=== PATIENT | female | born 1955 | race Caucasian/White ===

== ENCOUNTER 2019-08-10 09:38 | Outpatient (CLI) | payer MEDICARE, OTHER, SELFPAY ==
--- NOTE | 2019-08-10 09:52 | US_ITS ---
WS: [id number] Abdomen ultrasound, 08/10/2019 Clinical Data: ABDOMINAL PAIN Comparison: Abdomen ultrasound, 09/26/2012. Findings: The pancreas was obscured by overlying bowel gas. The liver shows no cysts, masses or dilated intrahepatic ducts. The liver shows fatty infiltration an d measures 15.38 cm in AP diameter. The gallbladder is absent. The common bile duct is 3.2 mm and no intraductal abnormalities are noted. The right kidney is 10.6 cm. No cysts, masses or hydronephrosis is seen. The left kidney is 11.2 cm. No cysts, masses or hydronephrosis is seen. The abdominal aorta is not dilated and the inferior vena cava has normal flow. No vascular abnormalit ies are seen. The spleen measures 9.9 cm and there are no intrasplenic masses are capsular abnormalities. US/US abdomen complete* [id number] Impression: Negative abdomen ultrasound.
== END 2019-08-10 09:39 | disposition home or self-care (01) ==
LOC: RAD 09:46
PROVIDERS: Family Provider Nurse Practitioner; PCP Nurse Practitioner; Visit Provider Nurse Practitioner
DX: K21.9 Gastro-esophageal reflux disease without esophagitis (principal); L57.0 Actinic keratosis; R10.9 Unspecified abdominal pain
CPT/HCPCS: 76700

== ENCOUNTER 2019-08-22 10:35 | Outpatient (CLI) | payer MEDICARE, OTHER, SELFPAY ==
--- NOTE | 2019-08-22 10:39 | US_ITS ---
WS: [id number] Pelvic ultrasound, 08/22/2019 Clinical Data: SUPRAPUBIC AREA PAIN Comparison: Pelvic ultrasound, 04/19/2011 Findings: The uterus measures 5.7 cm x 5.0 cm x 3.1 cm. The endometrium is 0.5 cm. No intrauterine or abnormal intrauterine mass is seen. The endometrium measures 0.50 cm with minimal fluid. The left ovary measures 2.0 cm x 2.4 cm x 1.0 cm with no cysts or masses. The right ovary measures 2.9 cm x 1.4 cm x 1.0 cm with no cysts or masses. US/US pelvic with transvaginal Impression: 1. Negative pelvic ultrasound. 2. Minimal fluid in endometrium.
== END 2019-08-22 10:36 | disposition home or self-care (01) ==
LOC: US 10:36
PROVIDERS: Family Provider Nurse Practitioner; PCP Nurse Practitioner; Visit Provider Nurse Practitioner
DX: R10.9 Unspecified abdominal pain (principal)
CPT/HCPCS: 76830; 76856

== ENCOUNTER 2020-03-25 13:07 | Outpatient (CLI) | payer MEDICARE, OTHER, SELFPAY ==
--- NOTE | 2020-03-25 | XR_ITS ---
WS: [id number] ANKLE RIGHT TECHNIQUE: 3 views of the right ankle CLINICAL INFORMATION: RIGHT ANKLE PAIN SWELLING COMPARISON: None. FINDINGS: Moderate diffuse soft tissue edema. Spinal fracture involving the distal fibula. Mild asymmetric wide pascual of the medial ankle mortise. Normal medial malleolus. Normal talar dome. Tiny plantar calcaneal spur. Achilles enthesophyte. XR/XR ankle RT min 3V* [id number] IMPRESSION: Comminuted spiral type fracture involving the distal fibula with mild asymmetry of the ankle mortise.
== END 2020-03-25 13:08 | disposition home or self-care (01) ==
PROVIDERS: Family Provider Nurse Practitioner; PCP Nurse Practitioner; Visit Provider Nurse Practitioner Family
DX: S82.441A Displaced spiral fracture of shaft of right fibula, initial encounter for closed fracture (principal); X58.XXXA Exposure to other specified factors, initial encounter; M25.471 Effusion, right ankle
CPT/HCPCS: 73610

== ENCOUNTER → 2020-03-27 11:12 | Outpatient (BNVA) | payer MEDICARE, OTHER, SELFPAY | PROVIDERS: Family Provider Nurse Practitioner; PCP Nurse Practitioner; Visit Provider Dermatology | DX: D48.9 Neoplasm of uncertain behavior, unspecified (principal) | CPT/HCPCS: 88304 ==

== ENCOUNTER → 2020-04-01 10:35 | Outpatient (BNVA) | payer MEDICARE, OTHER, SELFPAY | PROVIDERS: Family Provider Nurse Practitioner; PCP Nurse Practitioner; Referring Provider Nurse Practitioner Family; Visit Provider Podiatrist Foot & Ankle Surgery | DX: S99.911A Unspecified injury of right ankle, initial encounter (principal); S82.831A Other fracture of upper and lower end of right fibula, initial encounter for closed fracture | CPT/HCPCS: 73610 ==

== ENCOUNTER 2020-04-01 11:39 | Outpatient (CLI) | payer MEDICARE, OTHER, SELFPAY | END 2020-04-01 11:40 | disposition home or self-care (01) | LOC: SPT 11:40 | PROVIDERS: Family Provider Nurse Practitioner; PCP Nurse Practitioner; Visit Provider Podiatrist Foot & Ankle Surgery | DX: Z47.89 Encounter for other orthopedic aftercare (principal); S82.831D Other fracture of upper and lower end of right fibula, subsequent encounter for closed fracture with routine healing; X58.XXXD Exposure to other specified factors, subsequent encounter | CPT/HCPCS: 97760; L4361 ==

== ENCOUNTER → 2020-04-16 10:58 | Outpatient (BNVA) | payer MEDICARE, OTHER, SELFPAY | PROVIDERS: Family Provider Nurse Practitioner; PCP Nurse Practitioner; Visit Provider Podiatrist Foot & Ankle Surgery | DX: S82.831A Other fracture of upper and lower end of right fibula, initial encounter for closed fracture (principal) | CPT/HCPCS: 73610 ==

== ENCOUNTER → 2020-05-06 12:53 | Outpatient (BNVA) | payer MEDICARE, OTHER, SELFPAY | PROVIDERS: Family Provider Nurse Practitioner; PCP Nurse Practitioner; Visit Provider Podiatrist Foot & Ankle Surgery | DX: S82.831A Other fracture of upper and lower end of right fibula, initial encounter for closed fracture (principal) | CPT/HCPCS: 73610 ==

== ENCOUNTER → 2020-06-03 14:22 | Outpatient (BNVA) | payer MEDICARE, OTHER, SELFPAY | PROVIDERS: Family Provider Nurse Practitioner; PCP Nurse Practitioner; Visit Provider Podiatrist Foot & Ankle Surgery | DX: Z47.89 Encounter for other orthopedic aftercare (principal); S82.831D Other fracture of upper and lower end of right fibula, subsequent encounter for closed fracture with routine healing; X58.XXXD Exposure to other specified factors, subsequent encounter | CPT/HCPCS: 73610 ==

== ENCOUNTER 2020-07-24 12:25 | Outpatient (CLI) | payer MEDICARE, OTHER, SELFPAY ==
--- NOTE | 2020-07-24 12:30 | XR_ITS ---
WS: [id number] DEXA (DUAL ENERGY X-RAY ABSORPTIOMETRY) Bone mineral density was performed using a orderbolt machine. HISTORY: ASYMPTOMATIC POSTMENOPAUSAL COMPARISON: None available. Lumbar spine BMD (L1-L4): 1.154 g/cm2 T score: -0.2 Z score: 0.9 Total hip BMD: Left: 0.850 g/cm2. T score: -1.3 Z score: -0.3 Right: 0.839 g/cm2. T score: -1.3 Z score: -0.4 10 year probability of a major osteoporotic fracture is 15%. XR/XR DEXA axial skeleton* [id number] IMPRESSION: OSTEOPENIA based upon the WHO classification for females.
== END 2020-07-24 12:26 | disposition home or self-care (01) ==
LOC: RADWPI 12:30
PROVIDERS: PCP Nurse Practitioner; Visit Provider Nurse Practitioner
DX: Z78.0 Asymptomatic menopausal state (principal); M85.88 Other specified disorders of bone density and structure, other site
CPT/HCPCS: 77080

== ENCOUNTER 2020-08-25 10:08 | Emergency (ER) | payer MEDICARE, OTHER, SELFPAY ==
[2020-08-25 10:14] VITALS: BP 142/95; PULSE 101; RESP 18; TEMP 36.3; O2SAT 98; BMI 26.6
--- NOTE | 2020-08-25 10:20 | XR_ITS ---
WS: [id number] XR nasal bones min 3V [id number] REASON FOR EXAM: fall FINDINGS: The superior nasal spine has slight alteration in the contour of the distal most aspect but appears i ntact. Inferior nasal spine appears posteriorly with a small displaced bony fragment and slight depression o f the more anterior portion of the nasal spine. XR/XR nasal bones min 3V [id number] IMPRESSION: Fracture of inferior nasal spine as above.
[2020-08-25 10:23] VITALS: BP 142/95; PULSE 93; RESP 18; O2SAT 100
--- NOTE | 2020-08-25 11:15 | ED_ITS ---
HPI - Head Injury General: Chief complaint: Head Injury Stated complaint: Fall/Nose Injury Time Seen by Provider: 08/25/20 10:13 History of Present Illness: HPI Narrative: 65-year-old female stumbled and fell her glasses cut her face she has an abrasion across face and her upper lip. Loss of consciousness. No pausing not but nausea or vomiting. 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 Complaint: fall Onset (ago): minute(s) Place: outdoors Loss of Consciousness: no Location of injury: face Severity: mild Quality: sharp Associated symptoms: Deny amnesia, confusion, nausea, neck pain, numbness, syncope, tingling, vertigo, visual changes, vomiting or weakness Review of Systems Card: Denies: syncope GI: Denies: nausea or vomiting Musc: Denies: neck pain Neuro: Denies: vertigo or confusion PFS ED PFSH: Medical History Hypothyroidism Surgical History History of bilateral tubal ligation History of cholecystectomy History of thyroid surgery Family History Grandmother Cancer Lung Cancer Diabetes Sister No problems noted. Mother Cancer Breast Cancer and Liver Cancer Lung disease Father Psychiatric illness Social History Smoking and tobacco status: former smoker Second hand smoke exposure: No Alcohol intake: never Physical Exam Const: COMMON NORMALS: no acute distress GENERAL APPEARANCE: cooperative and comfortable ORIENTATION/CONSCIOUSNESS: Yes awake, Yes oriented to person, Yes oriented to place and Yes oriented to time HENMT: COMMON NORMALS: normocephalic and hearing grossly normal bilaterally HEAD & SCALP: normocephalic OTHER: X-rays show nasal bone fractures see x-ray report there is no deviation of the septum some swallowing over the bridge of the nose there is a small abrasion over the glabella. There is an abrasion that is superficial on the right side of the frenulum. Eye: COMMON NORMALS: Equal, round and reactive pupils present, EOMs intact bilaterally, conjunctivae normal and no scleral icterus CONJUNCTIVA: Yes conjunctivae normal PUPIL: Yes Equal, round and reactive pupils present Neck/C-Spine: COMMON NORMALS: full ROM, no lymphadenopathy, supple and no JVD Lymph: LYMPHATIC: no lymphadenopathy noted and no lymphedema noted Resp: COMMON NORMALS: normal respiratory effort, No retractions, No use of accessory muscles and clear to auscultation bilaterally AUSCULTATION: clear to auscultation bilaterally Cardio: COMMON NORMALS: no JVD, regular rate, regular rhythm and No murmurs present (Cardio) RATE: regular rate RHYTHM: regular rhythm GI: COMMON NORMALS: Soft to palpation and No hepatosplenomegaly present AUSCULTATION: Yes normoactive bowel sounds PALPATION: Yes Soft to palpation, No Tenderness to palpation present (GI), No Guarding due to palpation present (GI) and Yes No hepatosplenomegaly present Extremity: COMMON NORMALS: normal to inspection, capillary refill normal, no clubbing, cyanosis or edema, no calf tenderness and no pedal edema Neuro: SENSORIUM/ORIENTATION: Yes oriented to person, Yes oriented to place and Yes oriented to time Skin: COMMON NORMALS: no rashes or lesions noted GENERAL SKIN EXAM: no rashes or lesions noted Course Vital Signs: Vital signs: Vital Signs Temperature 98.1 F 08/25/20 11:37 Pulse Rate 75 08/25/20 11:37 Respiratory Rate 16 08/25/20 11:37 Blood Pressure 160/84 08/25/20 11:37 Pulse Oximetry 100 08/25/20 11:37 MDM - Head Injury MDM Narrative: Medical decision making narrative: Ice NSAIDs. Avoid aggressive nose blowing. We will set up to follow-up with ENT. Discharge Plan Discharge Patient Disposition: Home Clinical Impression: Fall, Fracture of nasal bone Condition: Stable Prescriptions: New mupirocin 2 % ointment 1 applic topical DAILY Qty: 22 RF: 0 No Action verapamil 180 mg capsule,ext rel. pellets 24 hr 180 mg PO QAM RF: 0 levothyroxine 100 mcg capsule 100 mcg PO DAILY RF: 0 aspirin [Adult Aspirin Regimen] 81 mg tablet,delayed release (DR/EC) 81 mg PO .HS RF: 0 flecainide 50 mg tablet 100 mg PO BID RF: 0 (DME) cam boot See Rx Instructions .Route .MEDSUPPLY Qty: 1 RF: 0 imiquimod 5 % cream in packet 1 applic TOPICAL .COMPLEX Qty: 12 RF: 1 (DME) lace up ankle brace See Rx Instructions .Route .MEDSUPPLY Qty: 1 RF: 0 Discharge Orders: Discharge ED (Routine); Ordered 08/25/20 Ordered By: Dk Ly Referrals: Krystina Gay APN [Primary Care Provider] - Discharge Diet: Usual diet Discharge Activity: Resume usual activity Patient Instructions: Opioid Safety Activity Restrictions/Additional Instructions: His management will call to make an appointment for you with ENT. Coding Level of Care Code ED Supervisor Quilting for Joselito Manning
[2020-08-25] MEDS: tetanus-dipt-pertussis 0.5 mL SDV IM (11:27)
--- NOTE | 2020-08-25 11:31 | PC.NURSE ---
2 steristrips placed on patients laceration to the bridge of her nose.
[2020-08-25 11:37] VITALS: BP 160/84; PULSE 75; RESP 16; TEMP 36.7; O2SAT 100
== END 2020-08-25 11:37 | disposition home or self-care (01) ==
PROVIDERS: Emergency Provider Family Medicine; PCP Nurse Practitioner
DX: S02.2XXA Fracture of nasal bones, initial encounter for closed fracture (principal); Z79.82 Long term (current) use of aspirin; Z87.891 Personal history of nicotine dependence; W01.0XXA Fall on same level from slipping, tripping and stumbling without subsequent striking against object, initial encounter; Z23 Encounter for immunization
CPT/HCPCS: 70160; 90471; 90715; 99282

== ENCOUNTER → 2020-09-02 14:05 | Outpatient (BNVA) | payer MEDICARE, OTHER, SELFPAY | PROVIDERS: PCP Nurse Practitioner; Visit Provider Podiatrist Foot & Ankle Surgery | DX: S82.831D Other fracture of upper and lower end of right fibula, subsequent encounter for closed fracture with routine healing (principal); X58.XXXD Exposure to other specified factors, subsequent encounter | CPT/HCPCS: 73610 ==

== ENCOUNTER 2020-09-18 13:34 | Outpatient (CLI) | payer MEDICARE, OTHER, SELFPAY ==
--- NOTE | 2020-09-18 13:39 | MM_ITS ---
WS: [id number] BILATERAL DIGITAL SCREENING MAMMOGRAPHY WITH CAD CLINICAL INFORMATION: SCREENING HISTORY: Screening mammogram. No current complaints. COMPARISON: None. TECHNIQUE: Bilateral CC and MLO views. FINDINGS: Scattered fibroglandular densities bilaterally. No suspicious focal mass, asymmetry, calcifications, or architectural distortion. No evidence of malignancy. Vascular calcification. MM/[place] [id number] IMPRESSION: BI-RADS: 2-Benign FOLLOW UP: 1 Year Follow-up Recommend return to annual screening mammography.
== END 2020-09-18 13:35 | disposition home or self-care (01) ==
LOC: RADSHAW 13:35
PROVIDERS: PCP Nurse Practitioner; Visit Provider Nurse Practitioner
DX: Z12.31 Encounter for screening mammogram for malignant neoplasm of breast (principal)
CPT/HCPCS: 77067

== ENCOUNTER 2021-07-14 19:19 | Emergency (ER) | payer MEDICARE, OTHER, SELFPAY ==
--- NOTE | 2021-07-14 19:27 | XRR_ITS ---
PROCEDURE INFORMATION: Exam: XR Chest Exam date and time: 07/14/2021 7:27 PM Age: 66 years old Clinical indication: Sternal or substernal pain; Additional info: Cp TECHNIQUE: Imaging protocol: XR of the chest. Views: 1 view. COMPARISON: CR Chest 1 [place] [id number] 01/15/2019 9:49 AM FINDINGS: Lungs: Stable COPD . Pleural spaces: Unremarkable. No pleural effusion. No pneumothorax. Heart/Mediastinum: Unremarkable. No cardiomegaly. Bones/joints: Mild thoracic spondylosis. XR/XR chest 1V portable [id number] IMPRESSION: Stable COPD .
[2021-07-14 19:50] VITALS: BP 172/100; PULSE 100; RESP 18; TEMP 37.1; O2SAT 100
[2021-07-14 20:13] LABS: Basophils # 0.1 10^3/uL (0.0-0.1); Basophils % 0.8 %; Eosinophils # 0.1 10^3/uL (0.0-0.8); Eosinophils % 1.6 %; Hematocrit 44.2 % (37.0-47.0); Hemoglobin 14.6 g/dL (11.5-15.3); Lymphocytes # 3.3 10^3/uL (0.8-4.8); Lymphocytes % 44.4 %; Mean Corpuscular Hemoglobin 32.4 pg (28.0-34.0); Mean Corpuscular Volume 98.2 fl (81-99); Mean Platelet Volume 10.6 fL (7.4-10.4); Monocytes # 0.7 10^3/uL (0.2-0.9); Monocytes % 9.4 %; Neutrophils # 3.23 10^3/uL (1.8-7.7); Neutrophils % 43.7 %; Nucleated Red Blood Cells % 0 %; Platelet Count 243 10^3/cmm (130-400); Red Cell Distribution Width 13.1 % (12.1-15.1); White Blood Count 7.4 10^3/uL (4.0-10.0)
--- NOTE | 2021-07-14 21:28 | ECG_ITS ---
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 Measurements Intervals [place] Rate: 111 P: 82 MT: 188 QRS: -45 QRSD: 118 T: 84 QT: 386 QTc: 526 Interpretive Statements SINUS TACHYCARDIA RIGHT ATRIAL ENLARGEMENT [0.3mV P-WAVE] POSSIBLE LEFT ATRIAL ENLARGEMENT [-0.1mV P-WAVE IN V1/V2] LEFT AXIS DEVIATION [QRS AXIS < -30] SEPTAL MYOCARDIAL INFARCTION , OF INDETERMINATE AGE [40+ ms Q WAVE IN V1/V2] Compared to ECG 01/15/2019 11:49:20 Atrial abnormality now present Left-axis deviation now present Myocardial infarct finding now present Sinus rhythm no longer present Intraventricular conduction delay no longer present T-wave abnormality no longer present Electronically Signed On 07-15-2021 7:06:55 MAIL INSERTER by Marion Prado M.D. [id number]
[2021-07-14 21:53] LABS: Alanine Aminotransferase 15 U/L (0-33); Albumin Level 4.2 g/dL (3.5-5.2); Alkaline Phosphatase 115 IU/L (35-105); Anion Gap 16.4 (5-19); Aspartate Amino Transferase 20 U/L (0-32); Blood Urea Nitrogen 20 mg/dL (8-23); Calcium 9.1 mg/dL (8.5-10.5); Carbon Dioxide 24 mmol/L (22-29); Chloride 103 mmol/L (98-107); Globulin 3.4 g/dL (1.3-4.6); Glomerular Filtration Rate 55.1 mL/min (90-130); Glucose 149 mg/dL (65-115); Osmolality Calculated 293 mOsm/kg (285-295); Potassium 4.4 mmol/L (3.5-5.1); Sodium 139 mmol/L (136-145); Total Bilirubin 0.5 mg/dL (0.15-1.2); Total Protein 7.6 g/dL (6.6-8.7)
[2021-07-14 21:54] LABS: Troponin(5th) Baseline 6 ng/L (0-10)
[2021-07-14 23:36] LABS: Troponin 5 2HR 7.51 ng/L (0-10)
[2021-07-14 23:44] LABS: Troponin 5 2HR Delta 1.51 ABS# (0-10)
--- NOTE | 2021-07-15 00:19 | W.ED.CHESTPA ---
HPI - Chest Pain General: Chief Complaint: Chest Pain Stated Complaint: High Blood Pressure\Chest Pressure Time Seen by Provider: 07/15/21 00:12 Source: patient Mode of arrival: ambulatory Limitations: no limitations History of Present Illness: 66-year-old female who states that she has been having intermittent chest pain for months. States that she been concerned she has been having high blood pressure over the last 3 to 4 days states been running the 150s 160s she currently on verapamil and flecainide for rate control states she has really take anything for blood pressure denies any pain currently denies any shortness of breath currently denies any worsening proving factors. Associated symptoms: Deny abdominal pain, dyspnea, fever(s), nausea or vomiting Review of Systems Const: Denies: fever(s), chills, body aches or change in appetite Eyes: Denies: blurry vision or eye discomfort ENMT: Denies: throat pain or dental pain Card: Reports: chest pain Resp: Denies: dyspnea GI: Denies: abdominal pain, nausea, vomiting or diarrhea : Denies: dysuria Musc: Denies: neck pain or back pain Skin/Breast: Denies: rash Neuro: Denies: headache(s) Psych: Denies: depression Chuy/Lymph: Denies: easy bruising All/Imm: Denies: urticaria PFSH ED PFSH: Medical History History of nonmelanoma skin cancer Hypothyroidism Surgical History History of bilateral tubal ligation History of cholecystectomy History of thyroid surgery Family History Grandmother Cancer Lung Cancer Diabetes Sister No problems noted. Mother Cancer Breast Cancer and Liver Cancer Lung disease Father Psychiatric illness Social History Smoking and tobacco status: never smoked Second hand smoke exposure: No Alcohol intake: never Physical Exam Const: COMMON NORMALS: no acute distress, patient oriented x3 and healthy appearing HENMT: COMMON NORMALS: normocephalic and atraumatic HEAD & SCALP: normocephalic and atraumatic Eye: COMMON NORMALS: Equal, round and reactive pupils present and EOMs intact bilaterally PUPIL: Yes Equal, round and reactive pupils present Neck/C-Spine: COMMON NORMALS: full ROM and supple Chest: COMMONS NORMALS: normal inspection of the chest and normal palpation of entire chest wall Resp: COMMON NORMALS: normal respiratory effort, No retractions, No use of accessory muscles and clear to auscultation bilaterally AUSCULTATION: clear to auscultation bilaterally Cardio: COMMON NORMALS: regular rate, regular rhythm and No murmurs present (Cardio) RATE: regular rate RHYTHM: regular rhythm GI: COMMON NORMALS: Normal to inspection, nondistended, normoactive bowel sounds present, Soft to palpation, non-tender and no masses PALPATION: Yes Soft to palpation Extremity: COMMON NORMALS: normal to inspection and full ROM Neuro: COMMON NORMALS: patient oriented x3, moves all extremities and no focal motor deficits Psych: COMMON NORMALS: mental status grossly normal, Normal thought process present and cooperative THOUGHT PROCESS: Normal thought process present Skin: COMMON NORMALS: no rashes or lesions noted and no wounds GENERAL SKIN EXAM: no rashes or lesions noted Course Vital Signs: Vital signs: Vital Signs Temperature 98.7 F 07/14/21 19:50 Pulse Rate 100 07/14/21 19:50 Respiratory Rate 18 07/14/21 19:50 Blood Pressure 172/100 07/14/21 19:50 Pulse Oximetry 100 07/14/21 19:50 MDM - Chest Pain Medical Decision Making Patient presents for chest pain has been going on for months and months and concern today was her high blood pressure does have some mild hypertension blood work including troponins here are negative we will start her on amlodipine she is stable for discharge she is to monitor her blood pressure and return if worsening. Lab Data : 07/14/21 20:08 07/14/21 20:57 Radiology Impressions Chest X-Ray 07/14/21 19:27 IMPRESSION: Stable COPD . Laboratory Results WBC 7.4 10^3/uL (4.0-10.0) 07/14/21 20:08 RBC 4.50 10^6/uL (4.1-5.3) 07/14/21 20:08 Hgb 14.6 g/dL (11.5-15.3) 07/14/21 20:08 Hct 44.2 % (37.0-47.0) 07/14/21 20:08 MCV 98.2 fl (81-99) 07/14/21 20:08 MCH 32.4 pg (28.0-34.0) 07/14/21 20:08 MCHC 33.0 g/dL (30.0-36.0) 07/14/21 20:08 RDW 13.1 % (12.1-15.1) 07/14/21 20:08 Plt Count 243 10^3/cmm (130-400) 07/14/21 20:08 MPV 10.6 fL (7.4-10.4) H 07/14/21 20:08 Neut % (Auto) 43.7 % 07/14/21 20:08 Lymph % (Auto) 44.4 % 07/14/21 20:08 [place] % (Auto) 9.4 % 07/14/21 20:08 Eos % (Auto) 1.6 % 07/14/21 20:08 Baso % (Auto) 0.8 % 07/14/21 20:08 Neut # (Auto) 3.23 10^3/uL (1.8-7.7) 07/14/21 20:08 Lymph # (Auto) 3.3 10^3/uL (0.8-4.8) 07/14/21 20:08 [place] # (Auto) 0.7 10^3/uL (0.2-0.9) 07/14/21 20:08 Eos # (Auto) 0.1 10^3/uL (0.0-0.8) 07/14/21 20:08 Baso # (Auto) 0.1 10^3/uL (0.0-0.1) 07/14/21 20:08 Nucleated RBC % (auto) 0 % 07/14/21 20:08 Nucleated RBCs # 0.0 /100WBC 07/14/21 20:08 Sodium 139 mmol/L (136-145) 07/14/21 20:57 Potassium 4.4 mmol/L (3.5-5.1) 07/14/21 20:57 Chloride 103 mmol/L (98-107) 07/14/21 20:57 Carbon Dioxide 24 mmol/L (22-29) 07/14/21 20:57 Anion Gap 16.4 (5-19) 07/14/21 20:57 BUN 20 mg/dL (8-23) 07/14/21 20:57 Creatinine 1.0 mg/dL (0.5-0.9) H 07/14/21 20:57 GFR Calculation 55.1 mL/min (90-130) L 07/14/21 20:57 Glucose 149 mg/dL (65-115) H 07/14/21 20:57 Calculated Osmolality 293 mOsm/kg (285-295) 07/14/21 20:57 Calcium 9.1 mg/dL (8.5-10.5) 07/14/21 20:57 Total Bilirubin 0.5 mg/dL (0.15-1.2) 07/14/21 20:57 AST 20 U/L (0-32) 07/14/21 20:57 ALT 15 U/L (0-33) 07/14/21 20:57 Alkaline Phosphatase 115 IU/L (35-105) H 07/14/21 20:57 Troponin T Baseline 6 ng/L (0-10) 07/14/21 20:57 Troponin T 120 Minute 7.51 ng/L (0-10) 07/14/21 23:05 Delta Troponin T 1.51 ABS# (0-10) 07/14/21 23:05 Total Protein 7.6 g/dL (6.6-8.7) 07/14/21 20:57 Albumin 4.2 g/dL (3.5-5.2) 07/14/21 20:57 Globulin 3.4 g/dL (1.3-4.6) 07/14/21 20:57 Imaging Data cxr: I personally reviewed and interpreted this imaging study as follows: My impression: no acute abnormality EKG Data EKG 1: I personally reviewed and interpreted this EKG as follows: EKG interpretation date: 07/15/21 EKG interpretation time: 19:54 Interpretation: sinus tach hr [address] or t wave abnormalities qrs 118 qtc 452 Discharge Plan Discharge Patient Disposition: Home Clinical Impression: Chest pain Condition: Stable Prescriptions: New lisinopril 10 mg tablet 10 mg PO DAILY Qty: 30 0RF No Action verapamil 180 mg capsule,ext rel. pellets 24 hr 180 mg PO QAM 0RF levothyroxine 100 mcg capsule 100 mcg PO DAILY 0RF aspirin [Adult Aspirin Regimen] 81 mg tablet,delayed release (DR/EC) 81 mg PO .HS 0RF flecainide 50 mg tablet 100 mg PO BID 0RF (DME) cam boot See Rx Instructions .Route .MEDSUPPLY Qty: 1 0RF Rx Instructions: As directed (DME) lace up ankle brace See Rx Instructions .Route .MEDSUPPLY Qty: 1 0RF Rx Instructions: As directed Discharge Orders: Discharge ED (Routine); Ordered 07/15/21 Ordered By: Kori Damian Referrals: Krystina Gay [employer]ES [employer] THE[employer] [Primary Care Provider] - Discharge Diet: Advance as tolerated Discharge Activity: Resume usual activity Patient Instructions: Chest Pain (ED), Hypertension (ED) Coding Level of Care Code ED 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
[2021-07-15] MEDS: labetalol 5 mg/mL SDV 20mL 10 MG IVP (00:38)
== END 2021-07-15 00:47 | disposition home or self-care (01) ==
PROVIDERS: Emergency Provider Emergency Medicine; PCP Nurse Practitioner
DX: R07.9 Chest pain, unspecified (principal)
CPT/HCPCS: 36415; 71045; 80053; 84484; 85025; 93005; 96374; 99283; J3490

== ENCOUNTER → 2021-07-22 08:44 | Outpatient (BNVA) | payer MEDICARE, OTHER, SELFPAY | PROVIDERS: PCP Nurse Practitioner; Visit Provider Nurse Practitioner Family | DX: N39.0 Urinary tract infection, site not specified (principal) | CPT/HCPCS: 81003 ==

== ENCOUNTER → 2021-08-07 13:43 | Outpatient (BNVA) | payer MEDICARE, OTHER, SELFPAY | PROVIDERS: PCP Nurse Practitioner; Referring Provider Nurse Practitioner; Visit Provider Obstetrics & Gynecology | DX: N81.10 Cystocele, unspecified (principal) | CPT/HCPCS: 81000 ==

== ENCOUNTER → 2021-08-17 09:26 | Outpatient (BNVA) | payer MEDICARE, OTHER, SELFPAY | PROVIDERS: PCP Nurse Practitioner; Visit Provider Nurse Practitioner Family | DX: N39.0 Urinary tract infection, site not specified (principal); N81.10 Cystocele, unspecified | CPT/HCPCS: 81003 ==

== ENCOUNTER 2021-09-02 06:00 | Outpatient (CLI) | payer MEDICARE, OTHER, SELFPAY | END 2021-09-02 06:01 | disposition home or self-care (01) | LOC: LAB 09-09 12:48 | PROVIDERS: PCP Nurse Practitioner; Visit Provider Obstetrics & Gynecology | DX: N81.2 Incomplete uterovaginal prolapse (principal) | CPT/HCPCS: 87635 ==

== ENCOUNTER 2021-09-09 11:11 | Inpatient (IN) | payer MEDICARE, OTHER, SELFPAY ==
[2021-09-02 09:48] VITALS: BMI 29.0
[2021-09-02 12:18] LABS: Adenovirus Not Detected (NOT DETECT); Chlamydia Pneumoniae Not Detected (NOT DETECT); Coronavirus 229E,HKU1,NL63,OC4 Not Detected (NOT DETECT); Human Metapneumovirus Not Detected (NOT DETECT); Human Rhinovirus/Enterovirus Not Detected (NOT DETECT); Influenza A Not Detected (NOT DETECT); Influenza A H1 Not Detected (NOT DETECT); Influenza A H1-2009 Not Detected (NOT DETECT); Influenza A H3 Not Detected (NOT DETECT); Influenza B Not Detected (NOT DETECT); Mycoplasma Pneumoniae Not Detected (NOT DETECT); Parainfluenza Virus Type 1 Not Detected (NOT DETECT); Parainfluenza Virus Type 2 Not Detected (NOT DETECT); Parainfluenza Virus Type 3 Not Detected (NOT DETECT); Parainfluenza Virus Type 4 Not Detected (NOT DETECT); Respiratory Syncytial Virus A Not Detected (NOT DETECT); Respiratory Syncytial Virus B Not Detected (NOT DETECT); SARS-COV-2 Not Detected (NOT DETECT)
--- NOTE | 2021-09-02 13:30 | P.ANESASSM_ITS ---
Pre-Anesthetic Assessment Height/Weight: Height 1.7 m Weight 83.915 kg Operation Date: 09/09/21 07:00 Proposed Procedures p Total Vaginal Hysterectomy [id number](Not Applicable) - Pietro Monk MD s Salpingo-Oophorectomy (Vaginal)(Bilateral) - Pietro Monk MD s Sling(Not Applicable) - Pietro Monk MD s Sacrospinous Ligament Suspension(Not Applicable) - Pietro Monk MD Familial anesthetic complications: None Was Beta Soren taken within 24 hours: N/A Was Clonidine taken within 24 hours: N/A Social No alcohol and No tobacco Exam alert, oriented x 3 and regular rate & rhythm Airway Submandibular: within normal limits Cervical ROM: within normal limits Mallampati: Class II Dentition: chipped CV/HEM Arrythmia (SVT) and Hypertension Anesthetic Plan ASA status: 3 Anesthesia: General Risk of > 500 ml blood loss (7ml/kg in children): No Medications/Allergies Home Medications Medication Instructions Recorded Confirmed Last Taken Type aspirin 81 mg tablet,delayed 81 mg PO .HS tab 03/27/20 09/02/21 Unknown History release (Adult Aspirin Regimen) levothyroxine 100 mcg capsule 100 mcg PO DAILY 03/27/20 09/02/21 Unknown History verapamil 180 mg 24 hr 180 mg PO QAM 03/27/20 09/02/21 Unknown History capsule,extended release flecainide 50 mg tablet 100 mg PO BID tab 05/15/20 09/02/21 Unknown History lisinopril 10 mg tablet 5 mg PO DAILY tab 08/07/21 09/02/21 Unknown History calcium carbonate 500 mg calcium 500 mg PO DAILY 08/17/21 09/02/21 Unknown History (1,250 mg) tablet (Calcium 500) cholecalciferol (vitamin D3) 10 50 mcg PO DAILY 08/17/21 09/02/21 Unknown History mcg (400 unit) capsule mecobalamin (vitamin B12) 1,000 1,000 mcg PO DAILY 08/17/21 09/02/21 Unknown History mcg chewable tablet nitrofurantoin 100 mg PO BID #60 cap 08/17/21 09/02/21 Unknown Rx monohydrate/macrocrystals 100 mg capsule (Macrobid) Allergies Allergy/AdvReac Type Severity Reaction Status Date / Time No Known Allergies Allergy Verified 08/17/21 09:33 [facility] Anesthesia Medical History History of nonmelanoma skin cancer Hypothyroidism Recurrent UTI Surgical History History of bilateral tubal ligation History of cholecystectomy History of thyroid surgery Family History Grandmother Cancer Lung Cancer Diabetes maternal and maternal great grandmother Sister No problems noted. Mother , AT AGE 63 Cancer Breast Cancer and Liver Cancer Breast cancer mid 50's Father , AT AGE 71 No problems noted. Son Hypertension Diabetes Heart disease Family/Other Colon cancer paternal cousins x2 age onset unknown Denies family history of Ovarian cancer Clotting disorder Hyperlipidemia Anesthesia complication Bleeding disorder Uterine cancer Thyroid condition Stroke Social History Smoking and tobacco status: never smoked Alcohol intake: never Marital status: Current occupational status: retired History of recent travel: No Data Anesthesia COVID Results 09/02/21 10:14 Coronavirus 229E (PCR) Not detected SARS-CoV-2 (PCR) Not detected Cardiac Studies: No Data to Display
[2021-09-09] VITALS (19 sets, daily range): BP systolic 108–151; BP diastolic 61–92; PULSE 67–107; RESP 10–18; TEMP 34.8–36.8; O2SAT 96–100; BMI 29.0
--- NOTE | 2021-09-09 05:52 | ECG_ITS ---
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 Measurements Intervals [place] Rate: 93 P: 41 GA: 172 QRS: -28 QRSD: 123 T: 65 QT: 365 QTc: 454 Interpretive Statements SINUS RHYTHM WITH OCCASIONAL SUPRAVENTRICULAR PREMATURE COMPLEXES BORDERLINE LEFT AXIS DEVIATION [QRS AXIS < -20] MODERATE INTRAVENTRICULAR CONDUCTION DELAY [110+ ms QRS DURATION] NONSPECIFIC T-WAVE ABNORMALITY Compared to ECG 07/14/2021 19:54:58 Intraventricular conduction delay now present T-wave abnormality now present Sinus tachycardia no longer present Atrial abnormality no longer present Myocardial infarct finding no longer present Electronically Signed On 09-09-2021 17:16:37 CDT by Orlando Painting M.D. [email or web address]
[2021-09-09] MEDS: scopolamine 1.5 Patch 1 PATCH TRANSDERMA (06:35)
[2021-09-09] MEDS: enoxaparin 30 mg/0.3 mL Syringe SUBCUT (06:38)
[2021-09-09] MEDS: sodium chloride 0.9% 500 ML IV (06:47)
[2021-09-09 06:55] LABS: Add Urine Microscopic? YES; Bilirubin Urine Neg (Negative); Blood Urine Neg (Negative); Glucose Urine UA Norm (Normal); Ketones Urine Negative (Negative); Leukocyte Esterase Urine 2+ (Negative); Nitrate Urine Negative (Negative); Protein Urine Neg (Negative); Urine Appearance SL Hazy (CLEAR); Urine Color Yellow (Yellow); Urobilinogen Urine Norm (Negative); pH Urine 7 (5-7)
--- NOTE | 2021-09-09 06:55 | P.ANESUD_ITS ---
Pre-Anesthetic Update Pre-Anesthetic Assessment: Date of Surgery/Procedure: 09/09/21 Preop Juliane gnosis: Uterine prolapse stage II, cystocele stage III Proposed Procedure: Operation Date: 09/09/21 07:00 Proposed Procedures p Total Vaginal Hysterectomy [id number](Not Applicable) - Pietro Monk MD s Salpingo-Oophorectomy (Vaginal)(Bilateral) - Pietro Monk MD s Sling(Not Applicable) - Pietro Monk MD s Sacrospinous Ligament Suspension(Not Applicable) - Pietro Monk MD Any changes to Pre-Anesthetic Assessment?: No Last Intake: Intake Last Liquid Date 09/08/21 Last Liquid Time 19:30 Last Solid Date 09/08/21 Last Solid Time 19:30 Labs Last 48hrs: Urine 09/09/21 Range/Units 06:12 Urine Color Yellow (Yellow) Urine Appearance Sl hazy (CLEAR) Urine pH 7 (5-7) Ur Specific Gravit y 1.010 (1.005-1.030) Urine Protein Neg (Negative) Urine Glucose (UA) Norm (Normal) Urine Ketones Negative (Negative) Urine Nitrate Negative (Negative) Urine Bilirubin Neg (Negative) Ur Leukocyte Yaneli ase 2+ H (Negative) Vitals: Temperature 98.1 F 09/09/21 06:11 Temperature Source Temporal Artery S can 09/09/21 06:11 Pulse Rate 107 H 09/09/21 06:11 Respiratory Rate 16 09/09/21 06:11 Blood Pressure 141/92 09/09/21 06:11 Blood Pressure Simi n 108 09/09/21 06:11 Pulse Oximetry 98 09/09/21 06:11 Oxygen Delivery Me thod 09/09/21 06:11 Exam: Pre-Anes Outpt Exam: alert, oriented x 3 and clear to auscultation bilaterally Additional Exam Findings (including area of procedure): irregular, did not take flecainide or verapamil (per surgeon) Cardiac Studies: No Data to Display
[2021-09-09 06:58] LABS: Add Urine Culture? Yes; Bacteria Urine 2+ /hpf
--- NOTE | 2021-09-09 07:07 | W.PM.OPSUD ---
Surgery/Procedure H&P Update DATE OF PROCEDURE: September 09, 2021 DATE H&P PERFORMED: 08/07/21 H&P UPDATE INFORMATION: I have reviewed H&P completed within last 30 days and Changes to prior documentation as noted here PREOP DIAGNOSIS: Uterine prolapse stage II, cystocele stage III PLANNED PROCEDURE: Operation Date: 09/09/21 07:00 Proposed Procedures p Total Vaginal Hysterectomy [id number](Not Applicable) - Pietro Monk MD s Salpingo-Oophorectomy (Vaginal)(Bilateral) - Pietro Monk MD s Sling(Not Applicable) - Pietro Monk MD s Sacrospinous Ligament Suspension(Not Applicable) - Pietro Monk MD
[2021-09-09 07:17] LABS: Basophils # 0.1 10^3/uL (0.0-0.1); Basophils % 0.9 %; Eosinophils # 0.1 10^3/uL (0.0-0.8); Eosinophils % 1.6 %; Hemoglobin 13.5 g/dL (11.5-15.3); Lymphocytes # 2.4 10^3/uL (0.8-4.8); Lymphocytes % 35.9 %; Mean Corpuscular HGB Conc 32.9 g/dL (30.0-36.0); Mean Corpuscular Volume 97.2 fl (81-99); Mean Platelet Volume 10.2 fL (7.4-10.4); Monocytes # 0.8 10^3/uL (0.2-0.9); Monocytes % 11.5 %; Neutrophils # 3.39 10^3/uL (1.8-7.7); Neutrophils % 49.8 %; Nucleated Red Blood Cells % 0 %; Platelet Count 227 10^3/cmm (130-400); Red Blood Count 4.22 10^6/uL (4.1-5.3); White Blood Count 6.8 10^3/uL (4.0-10.0)
[2021-09-09] MEDS: levofloxacin-dextrose 5 % 500 MG/100 ML PREMIX 100 MG IV (07:19)
[2021-09-09 07:24] LABS: Alanine Aminotransferase 15 U/L (0-33); Albumin Level 3.9 g/dL (3.5-5.2); Alkaline Phosphatase 104 IU/L (35-105); Aspartate Amino Transferase 21 U/L (0-32); Blood Urea Nitrogen 22 mg/dL (8-23); Calcium 9.4 mg/dL (8.5-10.5); Carbon Dioxide 19 mmol/L (22-29); Chloride 107 mmol/L (98-107); Globulin 3.1 g/dL (1.3-4.6); Glomerular Filtration Rate 71.3 mL/min (90-130); Glucose 109 mg/dL (65-115); Osmolality Calculated 292 mOsm/kg (285-295); Sodium 139 mmol/L (136-145); Total Bilirubin 0.8 mg/dL (0.15-1.2)
[2021-09-09 07:26] LABS: Anion Gap 17.2 (5-19); Potassium 4.2 mmol/L (3.5-5.1)
[2021-09-09] MEDS: estrogens Conjugated Cream 30 gm 1 APPLIC VAGINAL (09:23)
--- NOTE | 2021-09-09 09:42 | P.OP_ITS ---
Operative Report Date of procedure: September 09, 2021 Pre-op diagnosis: Preop Diagnosis Uterine prolapse stage II, cystocele stage III Post-op diagnosis: SAme as above Procedure done: Total vaginal hysterectomy with bilateral salpingo-oophorectomy. Anterior colporrhaphy augmented with allograft. Single incision mid urethral sling. Cystoscopy Specimens removed/disposition: Uterus left and right ovaries Surgeon: Pietro Monk MD Estimated blood loss (mL): 100 IV fluids (mL): 1,400 Urine output (mL): 300 Complications: None Procedure: After informed consent and risks, benefits, indications and alternatives reviewed with the patient was taken to the operating room. The patient was placed in dorsal lithotomy position prepped, and draped in the usual sterile fashion. The pre-procedure timeout verifying the correct patient, procedure, s ite and side, could not requirements was performed and acknowledge by the OR team. A Huff catheter was placed. A Bookwalter vaginal retractor was placed into the vagina in usual manner visualize the cervix. Cervix was grasped with a single tooth tenaculum and circumferentially infiltrated with 1% Xylocaine with epinephrine. Then cervix was circumferentially incised with bovie and the bladder was dissected off the pubovesical cervical fascia anteriorly with a sponge stick and Metzenbaum scissors. The anterior peritoneal reflection was identified and the anterior cul-de-sac was entered sharply with Metzenbaum scissors. The same procedure was performed posteriorly and a posterior colpotomy was made through the posterior cul-de-sac space without difficulty and the posterior blade of the Bookwalter vaginal retractor was advanced posteriorly into the cul-de-sac. At this time, the left and right uterosacral ligaments were isolated and ligated with 0 Vicryl. The Enseal device was placed over the uterosacral ligaments on either side and was then used in a serial fashion up through the cardinal ligaments bilaterally cross-clamped, cut, and sealed with the Enseal device. Finally, the uterine arteries were cross-clamped, cut, sealed and ligated with the Enseal device. Hemostasis was assured. The broad ligaments were then serially clamped, sealed and cut with the Enseal device on both sides. Excellent hemostasis was visualized. Both cornua were clamped, sealed and cut with the Enseal device. Then the pedicles were then suture ligated with excellent hemostasis. The uterus was excised and submitted for pathologic evaluation. No other abnormalities were noted in the pelvic cavity. Then the right side Infundibular ligament was identified. The ureter was confirmed along the pelvic side wall and peristalsis was noted. The Enseal device was then used to clamp, sealed and transcepted at middistance, again being sure to be clear of the ureter and the fallopian tube and ovary were removed. The same process was then repeated on the left side. Good hemostasis was assure on both sides. The peritoneum was then closed in a pursestring fashion with 0 Vicryl suture. The vaginal cuff angles were closed with [id number] #0 Vicryl suture on both sides and transfixed with the ipsilateral cardinal and uterosacral ligaments. The remainder of the vaginal cuff was closed with #0 Vicryl in a running locked fashion. The anterior vaginal mucosa beneath the midurethra was infiltrated with 2% lidocaine with epinephrine. A vertical midline incision was made beneath the midurethra, nearly 1.5 cm length. Careful submucosal dissection was performed bilaterally up to the interior portion of the inferior pubic ramus. The insertion of adductor longus tendon on the patient?s pubic ramus was identified as reference land artie. Palpated the notch along the internal edge of ischiopubic ramus where the adductor longus tendon and the inferior pubic ramus meet. The Altis single incision sling (SIS) was selected. Then the needle of the SIS inserted aiming at the location of this notch. One of the integrated self- fixating tips place onto the needle by sliding it over the end of the needle. The needle/sling assembly was inserted toward the location of identified reference notch making sure that the flat of the handle is perpendicular to the desired path. The needle was tracked along the posterior surface of the ischiopubic ramus until the midline artie on the mesh is approximately at the midline position under the urethra. The needle was removed and the same was repeated on the contralateral side until the appropriate sling tension under the urethra was achieved ensuring that the mesh lays flat. The needle was removed and vaginal incision was closed in a running interlocking fashion with 2-0 Vicryl. The vaginal mucosa was then injected in the midline with normal saline. The vaginal mucosa was scored in the midline with the Bovie approximately 1 cm medial to the urethral meatus to 1 cm distal to the [vaginal cuff/cervix]. This vaginal mucosa was then undermined and then incised in the midline with the Metzenbaum scissors. The lateral aspects of the vaginal mucosa were then grasped with the Allis clamps and the vaginal mucosa was then dissected off the underlying fascia with the Metzenbaum scissors. Again, there was noted to be quite a bit of oozing at the incision, which was controlled with cautery. After adequate dissection was performed, bilaterally. Coloplast allograft was modified at time of application to fit spacea, 3x3 cm piece . The allograft was placed in front of cystocele ready to be implanted and suture is placed at distal end of graft and placed towards vaginal cuff. Final suture is placed on proximal portion of the graft to complete the placement overlying the bladder. Then Interrupted vertical mattress sutures of 0 Vicryl were used to elevate the cystocele superiorly. The excessive vaginal mucosa was then trimmed with the Metzenbaum scissors and the vaginal mucosa was then reapproximated in the running interlocking fashion with 2-0 Vicryl. The patient was given indigo carmine IV. At this time, instruments were removed from the vagina at hemostasis assured. Then the Huff catheter was removed and cystoscope was inserted. The bladder was filled with sterile water. Complete evaluation of the bladder mucosa was performed noting no lacerations, dimpling, tears, bleeding of the mucosa or muscular layers. Both ureteral orifices were identified. Prompt excretion of urine from both ureteral orifices was noted. Cystoscope was withdrawn. Huff catheter was then placed yielding clear blue/asya urine. A vaginal packing with Premarin cream was placed and the patient was taken out of dorsal lithotomy position and awakened from the general anesthesia. The patient tolerated the procedure well and was taken to the PACU recovery room in a stable condition. Sponge, lap, needle and instruments counts were correct x3.
--- NOTE | 2021-09-09 09:51 | ANE.PACU2 ---
Inpatient post-anesthesia follow up: Airway intact: Yes Vital signs: Temperature 98.1 F Pulse Rate 107 Respiratory Rate 16 Blood Pressure 141/92 Pulse Oximetry 98 Oxygen Delivery Me thod Room Air Oxygen Flow Rate Fraction of Inspir ed Oxygen Hydration adequate: Yes Nausea and vomiting: No Pain level: 2 Mental status: Baseline
[2021-09-09] MEDS: dextrose 5%-lactated ringers 1,000 ML 125 ML IV ×2 (11:40→19:04)
--- NOTE | 2021-09-09 11:52 | PC.NURSE ---
HERE AND PATIENT HAS HAD COMPLETE MODERNA COVID SERIES HE IS UNSURE OF EXACT DATES BELIEVES LAST SHOT WAS IN APRIL. HE STATES THAT PATIENT IS HARD OF HEARING AND WEARS HEARING AIDES WELL GLASSES.
[2021-09-09] MEDS: ketorolac 30 mg/mL INJ IVP ×3 (11:55→23:15)
[2021-09-09] MEDS: HYDROcodone-acetaminophen 5-325 mg Tablet PO (12:38)
[2021-09-09] MEDS: lisinopril 5 mg Tablet PO (13:02)
[2021-09-09] MEDS: nitrofurantoin SR (BID) 100 mg Capsule PO (17:45)
[2021-09-09] MEDS: docusate sodium 100 mg Capsule PO (17:46)
[2021-09-09] MEDS: flecainide 100 mg Tablet PO (17:46)
[2021-09-09] MEDS: aspirin 81 mg EC Tablet PO (23:15)
[2021-09-10] VITALS (7 sets, daily range): BP systolic 90–118; BP diastolic 63–75; PULSE 88–142; RESP 17–18; TEMP 36.3–37.1; O2SAT 96–99
[2021-09-10] MEDS: HYDROcodone-acetaminophen 5-325 mg Tablet PO ×2 (04:26→09:51)
[2021-09-10] MEDS: verapamil ER 180 mg Tablet PO (05:39)
[2021-09-10] MEDS: ketorolac 30 mg/mL INJ IVP (05:39)
[2021-09-10 06:01] LABS: Hemoglobin 11.3 g/dL (11.5-15.3); Mean Corpuscular HGB Conc 33.2 g/dL (30.0-36.0); Mean Corpuscular Hemoglobin 31.8 pg (28.0-34.0); Mean Corpuscular Volume 95.8 fl (81-99); Mean Platelet Volume 10.3 fL (7.4-10.4); Platelet Count 193 10^3/cmm (130-400); Red Blood Count 3.55 10^6/uL (4.1-5.3); Red Cell Distribution Width 12.9 % (12.1-15.1); White Blood Count 11.1 10^3/uL (4.0-10.0)
[2021-09-10] MEDS: ibuprofen 800 mg tablet PO ×2 (09:51→17:12)
[2021-09-10] MEDS: lisinopril 5 mg Tablet PO (09:51)
[2021-09-10] MEDS: docusate sodium 100 mg Capsule PO ×2 (09:51→17:12)
[2021-09-10] MEDS: flecainide 100 mg Tablet PO ×2 (09:51→17:12)
[2021-09-10] MEDS: nitrofurantoin SR (BID) 100 mg Capsule PO ×2 (09:56→17:12)
[2021-09-10] MEDS: levothyroxine 100 mcg Tablet PO (10:13)
--- NOTE | 2021-09-10 13:22 | ECG_ITS ---
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 Measurements Intervals [place] Rate: 97 P: [place]: QRS: -18 QRSD: 124 T: 33 QT: 393 QTc: 501 Interpretive Statements Sinus rhythm with frequent PACs MODERATE INTRAVENTRICULAR CONDUCTION DELAY [110+ ms QRS DURATION] Compared to ECG 09/09/2021 07:07:05 Sinus rhythm no longer present T-wave abnormality no longer present Electronically Signed On 09-11-2021 11:13:55 CDT by Marion Prado M.D. [email or web address] [email or web address] Networksmercy [id number]
[2021-09-10 13:27] LABS: Glucose Point of Care 150 mg/dL (70-110)
[2021-09-10 13:46] LABS: Basophils # 0.1 10^3/uL (0.0-0.1); Basophils % 0.4 %; Eosinophils % 0.2 %; Hematocrit 33.4 % (37.0-47.0); Hemoglobin 10.6 g/dL (11.5-15.3); Lymphocytes # 3.1 10^3/uL (0.8-4.8); Lymphocytes % 26.3 %; Mean Corpuscular HGB Conc 31.7 g/dL (30.0-36.0); Mean Corpuscular Hemoglobin 31.8 pg (28.0-34.0); Mean Corpuscular Volume 100.3 fl (81-99); Mean Platelet Volume 10.5 fL (7.4-10.4); Monocytes # 0.9 10^3/uL (0.2-0.9); Monocytes % 7.6 %; Neutrophils # 7.75 10^3/uL (1.8-7.7); Nucleated Red Blood Cells % 0 %; Platelet Count 184 10^3/cmm (130-400); Red Blood Count 3.33 10^6/uL (4.1-5.3); Red Cell Distribution Width 13.2 % (12.1-15.1); White Blood Count 11.9 10^3/uL (4.0-10.0)
[2021-09-10 13:50] LABS: Alanine Aminotransferase 252 U/L (0-33); Alkaline Phosphatase 110 IU/L (35-105); Anion Gap 13.7 (5-19); Aspartate Amino Transferase 132 U/L (0-32); Blood Urea Nitrogen 22 mg/dL (8-23); Calcium 8.4 mg/dL (8.5-10.5); Carbon Dioxide 22 mmol/L (22-29); Chloride 99 mmol/L (98-107); Globulin 2.5 g/dL (1.3-4.6); Glomerular Filtration Rate 49.4 mL/min (90-130); Glucose 124 mg/dL (65-115); Osmolality Calculated 277 mOsm/kg (285-295); Potassium 3.7 mmol/L (3.5-5.1); Sodium 131 mmol/L (136-145); Total Bilirubin 0.6 mg/dL (0.15-1.2); Total Protein 5.5 g/dL (6.6-8.7)
[2021-09-10 13:53] LABS: Troponin(5th) Baseline 30 ng/L (0-10)
--- NOTE | 2021-09-10 14:25 | CT_ITS ---
WS: [id number] CT HEAD NONCONTRAST HISTORY: syncope TECHNIQUE: Contiguous axial imaging performed through the brain in 2.5 mm imaging. Bone and soft tiss ue windows. Sagittal and coronal reformats reviewed. All CT scans at [facility] use at least one of these dose optimization techniques: automated exposure control; mA and/or kV adjustment per pa tient size (includes targeted exams where dose is matched to clinical indication); or iterative recon struction. DLP: 1018.35 mGy.cm COMPARISON: None available. No acute intracranial hemorrhage, midline shift or mass effect. No atrophy or prior infarcts or herniation. Ventricles: Normal size with no hydrocephalus. Paranasal sinuses: As visualized are clear. Mastoid air cells: Well pneumatized. Calvarium and scalp: Skull is intact with no soft tissue edema or swelling. 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 CT/CT head wo con* [id number] IMPRESSION: Negative head CT.
--- NOTE | 2021-09-10 14:27 | USCV_ITS ---
Catrina Ellis Age: 66 Gender: F : 1955 Exam Date: 09/10/2021 15:45 Ordering Phys: Jose Antonio Carrillo MD Technologist: Dain Suarez Exam Location: [facility] [place] Indication: syncope BP: 108 / 75 HR: 92 Rhythm: Other Technical Quality: Adequate MEASUREMENTS (Male / Female) Normal Values 2D ECHO LV Diastolic Diameter PLAX 4.6 cm 4.2 - 5.9 / 3.9 - 5.3 cm LV Systolic Diameter PLAX 3.2 cm IVS Diastolic Thickness 0.9 cm 0.6 - 1.0 / 0.6 - 0.9 cm IVS Systolic Thickness 1.2 cm LVPW Diastolic Thickness 1.2 cm 0.6 - 1.0 / 0.6 - 0.9 cm LVPW Systolic Thickness 1.4 cm LVOT Diameter 2.0 cm LV Ejection Fraction 2D Teich 57.9 % LV Ejection Fraction MOD 2C 71.9 % LV Ejection Fraction 2C AL 70.5 % LA Diameter 3.1 cm LA Width 3.3 cm LA Height 3.5 cm RA Width 2.8 cm RA Height 3.9 cm Aorta at Sinotubular Diameter 2.5 cm M-MODE Aortic Annulus Diameter 2.8 cm LA Ao Ratio MM 1.1 DOPPLER AV Peak Velocity 129.0 cm/s LVOT Peak Velocity 103.0 cm/s AV Area Cont Eq vti 2.7 cm squared AV Area Cont Eq pk 2.6 cm squared TR Peak Velocity 240.4 cm/s TR Peak Gradient 23.1 mmHg TR Mean Velocity 203.4 cm/s TR Mean Gradient 19.4 mmHg TR Velocity Time Integral 68.6 cm RV Acceleration Time 0.1 s RV Ejection Time 0.3 s RV AcT/ET 0.4 FINDINGS Left Ventricle Normal left ventricular size and systolic function, EF 62 %. No regional wall motion abnormalities. Right Ventricle The right ventricle is normal in size and function. Right Atrium The right atrium is normal in size. Left Atrium The left atrium is normal in size. Mitral Valve Mild-moderate mitral valve regurgitation. Thickened mitral valve. Aortic Valve No gross abnormalities noted Tricuspid Valve No gross abnormalities noted Pulmonic Valve Pulmonic valve not well visualized. Pericardium No pericardial effusion. Aorta Normal ascending aorta dimension. CONCLUSIONS Normal left ventricular size and systolic function, EF 62 %. No regional wall motion abnormalities. Mild-moderate mitral valve regurgitation. Thickened mitral valve. There is no pericardial effusion. There are no intracardiac masses. No previous study is available for comparison. Dr Lucía De Luna MD [facility] (Electronically Signed) Final Date: 11 September 2021 09:34 S
--- NOTE | 2021-09-10 14:36 | PM.CONSULT ---
Providers/Reason For Consult Consulting Physician/Specialty*: Jose Antonio Carrillo MD, Hospitalist Reason for Consult*: Pre-Syncope Attending Physician: Pietro Monk MD Primary Care Provider: Krystina Gay APN History of Present Illness History of Present Illness Catrina Ellis is a 66 year old female w/ h/o HTN, SVT, Uterine prolapse admitted for elective Total Vaginal Hysterectomy w/ b/l salphingo-oophorectomy yesterday. Pt underwent the procedure yesterday. without any complication. However this morning pt felt weak, lightheaded and almost passed out at around 12.30 pm today. Pt states that she felt weak and lightheaded when she woke up. At 5am today her SBP was 90 mmHg. She stayed in bed and around lunch time she went to the toilet feeling weak and lightheaded. She use the toilet and attempted to return to her bed and felt very weak, lightheaded She sat down on a stool. She could not lift her head up even. She did not loose consciousness. Denied CP, diaphoresis, SOB, palpitation. She has a h/o SVT and this has bothered her from time to time in [facility] few years. Rapid response was called and pt was transferred to Medsurg unit. At present she feels some weakness but lightheadedness is better. Pt is being consulted for further management of Pre-Syncope Medications/Allergies Home Medications Medication Instructions Recorded Confirmed Last Taken Type aspirin 81 mg tablet,delayed 81 mg PO .HS tab 03/27/20 09/09/21 09/06/21 History release (Adult Aspirin Regimen) levothyroxine 100 mcg capsule 100 mcg PO DAILY 03/27/20 09/09/21 09/08/21 History verapamil 180 mg 24 hr 180 mg PO QAM 03/27/20 09/09/21 09/08/21 History capsule,extended release flecainide 50 mg tablet 100 mg PO BID tab 05/15/20 09/09/21 09/08/21 History lisinopril 10 mg tablet 5 mg PO DAILY tab 08/07/21 09/09/21 09/08/21 History calcium carbonate 500 mg calcium 500 mg PO DAILY 08/17/21 09/09/21 09/08/21 History (1,250 mg) tablet (Calcium 500) cholecalciferol (vitamin D3) 10 50 mcg PO DAILY 08/17/21 09/09/21 09/02/21 History mcg (400 unit) capsule mecobalamin (vitamin B12) 1,000 1,000 mcg PO DAILY 08/17/21 09/09/21 09/02/21 History mcg chewable tablet nitrofurantoin 100 mg PO BID #60 cap 08/17/21 09/09/21 09/08/21 Rx monohydrate/macrocrystals 100 mg capsule (Macrobid) Allergies Allergy/AdvReac Type Severity Reaction Status Date / Time No Known Allergies Allergy Verified 09/08/21 08:17 Current Medications Generic Name Dose Route Start Last Admin Trade Name Freq PRN Reason Stop Dose Admin Hydrocodone Bitart/Acetaminophen 1 - 2 tab 09/09/21 11:14 09/10/21 09:51 Hydrocodone-Acetaminophen 5-325 Mg Tablet PO 1 tab Q6H PRN Administration MODERATE TO SEVERE PAIN Aspirin 81 mg 09/09/21 21:00 09/09/21 23:15 Aspirin 81 Mg Ec Tablet PO 81 mg BEDTIME SIDNEY Administration Docusate Sodium 100 mg 09/09/21 18:00 09/10/21 09:51 Docusate Sodium 100 Mg Capsule PO 100 mg BID SIDNEY Administration Flecainide Acetate 100 mg 09/09/21 18:00 09/10/21 09:51 Flecainide 100 Mg Tablet PO 100 mg BID SIDNEY Administration Dextrose/Lactated Ringer's 1,000 mls @ 125 mls/hr 09/09/21 11:14 09/10/21 14:16 Dextrose 5%-Lactated Ringers IV Not Given .Q8H SIDNEY Ibuprofen 800 mg 09/10/21 10:00 09/10/21 09:51 Ibuprofen 800 Mg Tablet PO 800 mg Q8H SIDNEY Administration Levothyroxine Sodium 100 mcg 09/10/21 09:00 09/10/21 10:13 Levothyroxine 100 Mcg Tablet PO 100 mcg DAILY SIDNEY Administration Nitrofurantoin Macrocrystals 100 mg 09/09/21 18:00 09/10/21 09:56 Nitrofurantoin Sr (Bid) 100 Mg Capsule PO 100 mg BID SIDNEY Administration Verapamil HCl 180 mg 09/10/21 06:00 09/10/21 05:39 Verapamil Er 180 Mg Tablet PO 180 mg QAM SIDNEY Administration PFSH Acute PFSH: Medical History History of nonmelanoma skin cancer Hypothyroidism Recurrent UTI Surgical History History of bilateral tubal ligation History of cholecystectomy History of thyroid surgery Family History Grandmother Cancer Lung Cancer Diabetes maternal and maternal great grandmother Sister No problems noted. Mother , AT AGE 63 Cancer Breast Cancer and Liver Cancer Breast cancer mid 50's Father , AT AGE 71 No problems noted. Son Hypertension Diabetes Heart disease Family/Other Colon cancer paternal cousins x2 age onset unknown Denies family history of Ovarian cancer Clotting disorder Hyperlipidemia Anesthesia complication Bleeding disorder Uterine cancer Thyroid condition Stroke Social History Smoking and tobacco status: never smoked Alcohol intake: never Marital status: Current occupational status: retired History of recent travel: No Vitals/I&O/Wt Last Vital Signs Temp 98.7 F 09/10/21 05:00 Pulse 88 09/10/21 06:49 Resp 17 09/10/21 05:00 BP 90/63 09/10/21 05:00 Pulse Ox 97 09/10/21 06:49 09/09/21 09/10/21 09/10/21 22:59 06:59 14:59 Intake Total 1825 / 2525 1300 / 3825 Output Total 250 / 2300 Balance 1575 / 225 1300 / 1525 Weight last 48 hrs Weight 83.915 kg Physical Exam Narrative: Appear fatigued HEENT: EOMI, PERLLA, Thr (-), Nose (-) Neck: supple, Thy (-), Bruit (-) CVS: S1S2, IRRR, Mur (-) Resp: CTA Abd: soft, mild pelvic ten, BS+, HSM (-) Edema Trace CIGARETTE MAKER: A&Ox4, non focal Urinary Catheter Management: Huff: Cath Placed During This Visit: yes, but has since been removed by the nurse Reason for Continuing Indwelling Catheter: Decision to DC Catheter Urinary Catheter Date of Insertion: 09/09/21 Urinary Catheter Time of Insertion: 07:42 Date Urinary Catheter Removed: 09/10/21 Time Urinary Catheter Discontinued: 05:25 Data : 09/10/21 13:10 09/10/21 13:10 Micro: Microbiology 09/09/21 06:12 Urine Culture - Preliminary Urine,Clean Catch A&P Assessment and plan (1) Pre-syncope: May be due to At Fibrillation, Ac Anemia, Vasovagal, narcotic analgesic. Will need to r/o ACS, Cerebrovascular dis, Status: Acute (2) Acute blood loss anemia: Has dropped her H/H post operatively. May be contributing to her orthostasis and weakness Status: Acute (3) Weakness: Possibly due to multifactorial inc At Fib, hypothyroid, anemia Status: Acute (4) Atrial fibrillation: Has h/o SVT. Possibly has PAF Status: Acute (5) Cystocele with second degree uterine prolapse: s/p Total Vaginal Hysterectomy Status: Acute (6) Recurrent UTI: asymp Status: Acute (7) Hypothyroidism: on replacement Status: Acute (8) Hypotension: possibly due to anemia, Zestril Status: Acute (9) Benign hypertension: BP low at present Status: Acute Plan IVF Hold Zestril Reynaldo x4 ECG ECHO [address] Head Carotid Doppler Check TFT companion DVT Prophylaxis Lovenox Thank you for the conslt. We shall follow closely with you this very pleasant patient Consult Attestations Time Spent in Patient Care: 45 min Coding Level of Care Code Acute Healthcare Administration Intern for Joselito Fwd Diagnoses Pre-syncope R55 Acute blood loss anemia D62 Weakness R53.1 Atrial fibrillation I48.91 Cystocele with second degree uterine prolapse N81.2 Recurrent UTI N39.0 Hypothyroidism E03.9 Hypotension I95.9 Benign hypertension I10
--- NOTE | 2021-09-10 14:43 | PC.NURSE ---
1245 PT VOIDED 400MLS PRIOR TO THE RAPID RESPONSE, AFTER SHE WAS BETTER THIS CUSTOM MOTORCYCLE PAINTER WAS GOING TO SCAN HER AND WAS UNABLE BECAUSE MED SURG HAD TAKEN THE BLADDER SCANNER. DR. WEAVER AWARE AND THIS CUSTOM MOTORCYCLE PAINTER PASSE ON TO MED SURG STAFF THAT SHE NEEDED THIS DONE AFTER EVERY VOID AND DOCUMENTED AND TO LET DR. WEAVER KNOW AFTER THE NEXT VOID AND CHECK.
--- NOTE | 2021-09-10 14:52 | PC.NURSE ---
1300 PT RESTING IN BED CURRENTLY, RAPID RESPONSE TEAM REMAINS AT BEDSIDE. SEE EVENT REPORT.
--- NOTE | 2021-09-10 15:06 | USCV_ITS ---
Caleb Catrina Age: 66 Gender: F : 1955 Exam Date: 09/10/2021 15:16 Ordering Phys: Jose Antonio Carrillo MD Technologist: Dain Suarez [place] [facility] [place]: syncope Risk Factors: Previous Vascular Surgery: Right Brachial BP: / Left Brachial BP: / Right Left Velocity (cm/s) Spectral Plaque Velocity (cm/s) Spectral Plaque Syst/Diast Broadening Syst/Diast Broadening 127.30/15.90 Prox CCA 107.00/ 23.00 98.60/ 22.30 Mid CCA 109.10/ 22.30 152.50/34.20 Distal CCA 114.40/ 26.30 123.60/30.20 Prox ICA 126.20/ 27.60 133.40/34.20 Mid ICA 97.30 / 27.60 133.40/46.30 Distal ICA 106.00/ 34.20 135.40 ECA 82.90 1.35 ICA/CCA 0.89 Antegrade Vertebral Antegrade 124.6/ 22.10 cm/s 99.20/ 24.30 cm/s 0 Tri Subclavian Tri 172.2 156.9 0 0 FINDINGS Mild to moderate heterogeneous plaques at the right bifurcation and proximal internal carotid artery. Minimal plaques at left bifurcation and proximal internal carotid artery Antegrade flow in the vertebral arteries bilaterally. Normal Doppler flow velocities in the subclavian and vertebral arteries CONCLUSIONS Mild to moderate heterogeneous plaques at the right bifurcation and proximal internal carotid artery diameter velocity, suggesting 50 to 69% stenosis. Minimal plaques at left bifurcation and proximal internal carotid artery, suggesting less than 50% stenosis. No similar previous studies are available for comparison Dr Lucía De Luna MD [facility] (Electronically Signed) Final Date: 11 September 2021 09:20 S
--- NOTE | 2021-09-10 15:22 | ECG_ITS ---
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 Measurements Intervals [place] Rate: 100 P: [place]: QRS: -20 QRSD: 114 T: 38 QT: 388 QTc: 502 Interpretive Statements Sinus rhythm with frequent PACs MODERATE INTRAVENTRICULAR CONDUCTION DELAY [110+ ms QRS DURATION] NONSPECIFIC T-WAVE ABNORMALITY Compared to ECG 09/10/2021 12:56:16 T-wave abnormality now present Electronically Signed On 09-11-2021 13:49:57 CDT by Marion Prado M.D. [email or web address] county [email or web address] - [id number]
[2021-09-10 15:40] LABS: Free T4 Free Thyroxine 1.92 ng/dL (0.82-1.77); Thyroid Stimulating Hormone 0.59 uIU/mL (0.27-4.20)
--- NOTE | 2021-09-10 15:49 | ED_ITS ---
HPI - General Adult History of Present Illness: 58-year-old female loss consciousness in the bathroom post op day #1 hysterectomy. When I arrived she was lethargic sitting on the toilet to nurses assisted her to wheelchair and then brought her to the bed. See notes below. Respond is part of rapid response. Nursing staff reports she had some tach tachycardia last night and at the bedside said she had had intermittent episodes last couple of days. Reviewing her medicine list at the bedside it appears she has some atrial fibrillation I did not have the opportunity while in the exam room to review her preop H&P. She is on verapamil and has flecainide as needed she denies any chest pain at this time. Onset (ago): minute(s) Associated symptoms: Reports confusion, malaise, palpitations, syncope and weakness; Deny chest pain, diaphoresis, dyspnea, fevers/chills, short of breath or vomiting Treatments prior to arrival: none Review of Systems Const: Reports: malaise; Denies: diaphoresis Card: Reports: palpitations and syncope; Denies: chest pain Resp: Denies: dyspnea, productive cough or non-productive cough GI: Denies: vomiting Neuro: Reports: confusion PFSH ED PFSH: Medical History History of nonmelanoma skin cancer Hypothyroidism Recurrent UTI Surgical History History of bilateral tubal ligation History of cholecystectomy History of thyroid surgery Family History Grandmother Cancer Lung Cancer Diabetes maternal and maternal great grandmother Sister No problems noted. Mother , AT AGE 63 Cancer Breast Cancer and Liver Cancer Breast cancer mid 50's Father , AT AGE 71 No problems noted. Son Hypertension Diabetes Heart disease Family/Other Colon cancer paternal cousins x2 age onset unknown Denies family history of Ovarian cancer Clotting disorder Hyperlipidemia Anesthesia complication Bleeding disorder Uterine cancer Thyroid condition Stroke Social History Smoking and tobacco status: never smoked Alcohol intake: never Marital status: Current occupational status: retired History of recent travel: No Physical Exam Const: GENERAL APPEARANCE: cooperative ORIENTATION/CONSCIOUSNESS: Yes awake HENMT: COMMON NORMALS: normocephalic and atraumatic HEAD & SCALP: normocephalic and atraumatic Eye: COMMON NORMALS: Equal, round and reactive pupils present, EOMs intact bilaterally, conjunctivae normal and no scleral icterus CONJUNCTIVA: Yes conjunctivae normal PUPIL: Yes Equal, round and reactive pupils present Neck/C-Spine: COMMON NORMALS: full ROM, no lymphadenopathy, supple and no JVD Resp: COMMON NORMALS: normal respiratory effort, No retractions, No use of accessory muscles and clear to auscultation bilaterally AUSCULTATION: clear to auscultation bilaterally Cardio: COMMON NORMALS: no JVD, regular rate, regular rhythm and No murmurs present (Cardio) RATE: regular rate RHYTHM: regular rhythm GI: COMMON NORMALS: Soft to palpation and No hepatosplenomegaly present AUSCULTATION: Yes normoactive bowel sounds PALPATION: Yes Soft to palpation, No Tenderness to palpation present (GI), No Guarding due to palpation present (GI) and Yes No hepatosplenomegaly present Extremity: COMMON NORMALS: normal to inspection, capillary refill normal, no clubbing, cyanosis or edema, no calf tenderness and no pedal edema Skin: COMMON NORMALS: no rashes or lesions noted GENERAL SKIN EXAM: no rashes or lesions noted Course Vital Signs: Vital signs: Vital Signs Temperature 97.4 F L 09/10/21 12:55 Pulse Rate 95 09/10/21 13:20 Respiratory Rate 18 09/10/21 13:20 Blood Pressure 108/75 09/10/21 13:20 Pulse Oximetry 97 09/10/21 13:20 [facility] - General Adult Medical Decision Making Suspect patient had a vasovagal episode may have some tachyarrhythmias and pseudoneuroma monitor is hard to tell recommend medical consult as well as transfer to a bed where telemetry is available at this time she is stable care turned over to Dr. Monk now. Recommended initial orders that I gave to the gynecology nursing staff. Medical Records I reviewed the patient's medical records. Lab Data I reviewed the patient's lab results. : 09/10/21 13:10 09/10/21 13:10 Laboratory Results WBC 11.9 10^3/uL (4.0-10.0) H 09/10/21 13:10 RBC 3.33 10^6/uL (4.1-5.3) L 09/10/21 13:10 Hgb 10.6 g/dL (11.5-15.3) L 09/10/21 13:10 Hct 33.4 % (37.0-47.0) L 09/10/21 13:10 MCV 100.3 fl (81-99) H 09/10/21 13:10 MCH 31.8 pg (28.0-34.0) 09/10/21 13:10 MCHC 31.7 g/dL (30.0-36.0) 09/10/21 13:10 RDW 13.2 % (12.1-15.1) 09/10/21 13:10 Plt Count 184 10^3/cmm (130-400) 09/10/21 13:10 MPV 10.5 fL (7.4-10.4) H 09/10/21 13:10 Neut % (Auto) 65.0 % 09/10/21 13:10 Lymph % (Auto) 26.3 % 09/10/21 13:10 [place] % (Auto) 7.6 % 09/10/21 13:10 Eos % (Auto) 0.2 % 09/10/21 13:10 Baso % (Auto) 0.4 % 09/10/21 13:10 Neut # (Auto) 7.75 10^3/uL (1.8-7.7) H 09/10/21 13:10 Lymph # (Auto) 3.1 10^3/uL (0.8-4.8) 09/10/21 13:10 [place]iggs # (Auto) 0.9 10^3/uL (0.2-0.9) 09/10/21 13:10 Eos # (Auto) 0.0 10^3/uL (0.0-0.8) 09/10/21 13:10 Baso # (Auto) 0.1 10^3/uL (0.0-0.1) 09/10/21 13:10 Nucleated RBC % (auto) 0 % 09/10/21 13:10 Nucleated RBCs # 0.0 /100WBC 09/10/21 13:10 Sodium 131 mmol/L (136-145) L 09/10/21 13:10 Potassium 3.7 mmol/L (3.5-5.1) 09/10/21 13:10 Chloride 99 mmol/L (98-107) 09/10/21 13:10 Carbon Dioxide 22 mmol/L (22-29) 09/10/21 13:10 Anion Gap 13.7 (5-19) 09/10/21 13:10 BUN 22 mg/dL (8-23) 09/10/21 13:10 Creatinine 1.1 mg/dL (0.5-0.9) H 09/10/21 13:10 GFR Calculation 49.4 mL/min (90-130) L 09/10/21 13:10 Glucose 124 mg/dL (65-115) H 09/10/21 13:10 POC Glucose 150 mg/dL (70-110) H 09/10/21 12:58 Calculated Osmolality 277 mOsm/kg (285-295) L 09/10/21 13:10 Calcium 8.4 mg/dL (8.5-10.5) L 09/10/21 13:10 Total Bilirubin 0.6 mg/dL (0.15-1.2) 09/10/21 13:10 AST 132 U/L (0-32) H 09/10/21 13:10 ALT 252 U/L (0-33) H 09/10/21 13:10 Alkaline Phosphatase 110 IU/L (35-105) H 09/10/21 13:10 Troponin T Baseline 30 ng/L (0-10) H 09/10/21 13:10 Total Protein 5.5 g/dL (6.6-8.7) L 09/10/21 13:10 Albumin 3.0 g/dL (3.5-5.2) L 09/10/21 13:10 Globulin 2.5 g/dL (1.3-4.6) 09/10/21 13:10 TSH 0.59 uIU/mL (0.27-4.20) 09/10/21 13:11 Free T4 1.92 ng/dL (0.82-1.77) H 09/10/21 13:11 Urine Color Yellow (Yellow) 09/09/21 06:12 Urine Appearance Sl hazy (CLEAR) 09/09/21 06:12 Urine pH 7 (5-7) 09/09/21 06:12 Ur Specific [place] 1.010 (1.005-1.030) 09/09/21 06:12 Urine Protein Neg (Negative) 09/09/21 06:12 Urine Glucose (UA) Norm (Normal) 09/09/21 06:12 Urine Ketones Negative (Negative) 09/09/21 06:12 Urine Blood Neg (Negative) 09/09/21 06:12 Urine Nitrate Negative (Negative) 09/09/21 06:12 Urine Bilirubin Neg (Negative) 09/09/21 06:12 Urine Urobilinogen Norm mg/dL (Negative) 09/09/21 06:12 Ur Leukocyte Esterase 2+ (Negative) H 09/09/21 06:12 Urine RBC None /hpf (0-2) 09/09/21 06:12 Urine WBC 5-10 /hpf (0-5) H 09/09/21 06:12 Ur Squamous Epith Cells 5-10 /hpf (0-5) H 09/09/21 06:12 Amorphous Sediment Not Reportable 09/09/21 06:12 Urine Bacteria 2+ /hpf (NONE) H 09/09/21 06:12 Coronavirus 229E (PCR) Not detected (NOT DETECT) 09/02/21 10:14 SARS-CoV-2 (PCR) Not detected (NOT DETECT) 09/02/21 10:14 Blood Type O Negative 09/09/21 06:44 Rho(D) Type Negative 09/09/21 06:44 Antibody Screen Negative 09/09/21 06:44 Discharge Plan Discharge Patient Disposition: Xfer Other Condition: Stable Prescriptions: No Action verapamil 180 mg capsule,ext rel. pellets 24 hr 180 mg PO QAM 0RF levothyroxine 100 mcg capsule 100 mcg PO DAILY 0RF aspirin [Adult Aspirin Regimen] 81 mg tablet,delayed release (DR/EC) 81 mg PO .HS 0RF flecainide 50 mg tablet 100 mg PO BID 0RF cholecalciferol (vitamin D3) 10 mcg (400 unit) capsule 50 mcg PO DAILY 0RF calcium carbonate [Calcium 500] 500 mg calcium (1,250 mg) tablet 500 mg PO DAILY 0RF mecobalamin (vitamin B12) 1,000 mcg tablet,chewable 1,000 mcg PO DAILY 0RF nitrofurantoin monohyd/m-cryst [Macrobid] 100 mg capsule 100 mg PO BID Qty: 60 1RF Rx Instructions: must administer with a meal/food lisinopril 10 mg tablet 5 mg PO DAILY 0RF Referrals: Pietro Monk MD [Physician] - 09/25/21 9:15 am (Your 2 week post-operative appointment is scheduled for 09/25/21 @9:15. Your 6 week post-operative appointment is scheduled for 10/23/21 @8:45. ) Krystina Gay APN [Primary Care Provider] - Patient Instructions: Cystocele (DC), Uterine Prolapse (DC), Vaginal Hysterectomy (DC), OB Discharge Report, OB Food/Drug Interaction Guide Coding Level of Care Code ED Assembly Riveter for Chg Fwd NIH stroke score NIHSS Level Of Consciousness - 1a: 0 Level Of Consciousness Questions - 1b: Both Correct Level Of Consciousness Commands - 1c: Both Correct Best Gaze - 2: Normal Visual Fitch - 3: Partial Hemianopia (Patient has known visual field defects per the ) Facial Palsy - 4: Normal Motor Arm Right - 5: No Drift Motor Arm Left - 5: No Drift Motor Leg Right - 6: No Drift Motor Leg Left - 6: No Drift Limb Ataxia - 7: Absent Sensory - 8: Normal Best Language - 9: No Aphasia Dysarthia - 10: Normal Extinction And Inattention - 11: 0 Score Total Score: 1
[2021-09-10] MEDS: sodium chloride 0.9% 1,000 ML 75 ML IV (16:52)
--- NOTE | 2021-09-10 17:13 | PC.NURSE ---
Addendum entered by Sruthi Ivy RN 09/10/21 19:35: Bruno was placed, bruno had an output of 750 mls. Original Note: Patient urinated 200 mls, post urinated patient still had 387 mls in bladder.
[2021-09-10 18:28] LABS: Troponin 5 2HR 24.68 ng/L (0-10)
[2021-09-10 18:29] LABS: Troponin 5 2HR Delta -5.32 ABS# (0-10)
--- NOTE | 2021-09-10 19:22 | ECG_ITS ---
[facility] Test Date: 2021-09-10 Pat Name: Catrina Ellis Department: Room: 256 Gender: Female Fitness Assistant: : [id number] Requested By: Pietro Yin Order Number: [id number] Froy MD: Marion Prado M.D. Measurements Intervals Moro Rate: 78 P: 44 OR: 170 QRS: -19 QRSD: 125 T: 31 QT: 421 QTc: 482 Interpretive Statements SINUS RHYTHM WITH OCCASIONAL SUPRAVENTRICULAR PREMATURE COMPLEXES MODERATE INTRAVENTRICULAR CONDUCTION DELAY [105+ ms QRS DURATION, 80+ ms Q/S IN V1/V2, NO Q AND 60+ ms R IN I/aVL/V5/V6] Compared to ECG 09/10/2021 16:24:43 Atrial fibrillation no longer present T-wave abnormality no longer present Electronically Signed On 09-11-2021 11:16:55 CDT by Marion Prado M.D. [id number]
--- NOTE | 2021-09-10 19:37 | PC.NURSE ---
MD Carrillo asked me to do orthostatic vitals upon admission. Laying BP was 107/58. Sitting 124/72. Standing was 82/58.
--- NOTE | 2021-09-10 19:41 | PC.NURSE ---
Patient was transfered from OB after an episode of fainting to be placed on telemetry. Upon arrival patients vitals were stable and tele was placed. Orthostatic vitals done (see note). Patient failed voiding trial and bruno catheter was placed. IV fluids stated. Report given to night nurse.
--- NOTE | 2021-09-10 20:16 | PC.NURSE ---
i reported high pulse 102 to nurse
[2021-09-10 20:29] LABS: Troponin 5 6HR 21.69 ng/L (0-10)
[2021-09-10] MEDS: aspirin 81 mg EC Tablet PO (21:04)
[2021-09-10 22:06] LABS: Hepatitis B Core IgM Non-Reactive (Nonreactive); Hepatitis B Surface Antigen Non-Reactive (Nonreactive); Hepatitis C Virus Antibody Non-Reactive (Nonreactive)
[2021-09-11] VITALS: BP 112/62; PULSE 100; RESP 18; TEMP 36.6; O2SAT 96
[2021-09-11] MEDS: ibuprofen 800 mg tablet PO ×3 (01:06→17:37)
[2021-09-11 04:37] VITALS: BP 108/59; PULSE 94; RESP 18; TEMP 36.6; O2SAT 94
[2021-09-11] MEDS: verapamil ER 180 mg Tablet PO (05:12)
[2021-09-11] MEDS: levothyroxine 88 mcg Tablet PO (05:12)
[2021-09-11] MEDS: sodium chloride 0.9% 1,000 ML 75 ML IV (05:14)
[2021-09-11 06:46] LABS: Thyroid Stimulating Hormone 0.74 uIU/mL (0.27-4.20)
[2021-09-11 06:54] LABS: Free T4 Free Thyroxine 1.84 ng/dL (0.82-1.77)
[2021-09-11 07:39] VITALS: BP 108/65; PULSE 76; RESP 18; TEMP 36.9; O2SAT 96
[2021-09-11] MEDS: docusate sodium 100 mg Capsule PO ×2 (08:35→17:38)
[2021-09-11] MEDS: flecainide 100 mg Tablet PO ×2 (08:43→17:37)
--- NOTE | 2021-09-11 10:44 | PC.CHAP ---
Pastoral Care Encounter/Spiritual Assessment Type of Contact [] Declined anodizing line operator visit [] Patient/Family/Request visit [] Outpatient visit [] Follow-up visit [] Physician referral [] Code/Alert [x] Routine visit [] Staff referral [] Actively dying [] Patient sleeping [] Family support [] [] Out of room [] Palliative care [] [] Receiving care in room [] Pre-surgical visit [] Trauma [] Long length of stay [] ICU visit [] Other: Relational/Emotional Strength [] Patient feels connected with others/family/visitors/staff [] Distress [] Loneliness/isolation [] Abandonment Spirituality of Patient [] Person of Astrid [] Attends Sikh of their Astrid [] Believes in Prayer [] Reads Bible or Jehovah'S Witness materials [] There are Spiritual issues to be addressed Farm Management Teacher Interventions [] Prayer [] Active listening [] Non-anxious presence [] Spiritual/emotional support [] Crisis/trauma care [] Spiritual counseling [] Bereavement support [] Provided bereavement packet [] Provided Bible/devotional materials [] Provided toy/stuffed animal, coloring book to patient or family member [] Provided Communion [] Anointing/[place] [] Salvation [x] Completed spiritual assessment [x] Other: declined prayer Impact on Illness or Injury [] Angry [] Fearful [] Anxious [] Often cries [] Exhaustion [] Unable to work [] Unable to attend hindu [] Unable to walk/stand [] Unable to read [] Unable to drive [] Unable to eat/drink [] Unable to sleep [] Unable to be with family [] Patient intubated [] Other: Summary Time spent with patient
--- NOTE | 2021-09-11 11:17 | P.PN_ITS ---
Subjective Subjective: Doing better today. Not dizzy. Denied palpitation today. Slept well. Denied CP, SOB Vitals/I&O/Wt Last Vital Signs Temp 98.4 F 09/11/21 07:39 Pulse 76 09/11/21 07:39 Resp 18 09/11/21 07:39 BP 108/65 09/11/21 07:39 Pulse Ox 96 09/11/21 07:39 09/10/21 09/11/21 09/11/21 22:59 06:59 14:59 Intake Total 960 / 1860 927.5 / 2787.5 256 / 256 Output Total 1900 / 2350 720 / 3070 2250 / 2250 Balance -940 / -490 207.5 / -282.5 -1993 / Weight last 48 hrs Weight 83.915 kg Physical Exam Narrative: Nad CVS: S1S2, RRR, Mur (-) Resp CTA Abd soft, NT, BS+, HSM (-) Edema (-) EXECUTIVE CANDIDATE DEVELOPER A&Ox4 Urinary Catheter Management: Huff: Cath Placed During This Visit: yes, but has since been removed by the nurse Reason for Continuing Indwelling Catheter: Decision to DC Catheter Urinary Catheter Date of Insertion: 09/10/21 Urinary Catheter Time of Insertion: 18:15 Date Urinary Catheter Removed: 09/11/21 Time Urinary Catheter Discontinued: 11:11 Data : 09/10/21 13:10 09/10/21 13:10 Micro: Microbiology 09/09/21 06:12 Urine Culture - Final Urine,Clean Catch A&P Assessment and plan (1) Pre-syncope: Poss due to Ac Anemia, hypotension, Atrial Fibrillation, Narcotic analgesics/ anesthesia. r/o ACS Status: Acute (2) Acute blood loss anemia: Drop in H/H from post op bleed Status: Acute (3) Atrial fibrillation: Now back to NSR Status: Acute (4) Benign hypertension: Was hypotensive and now stable Status: Acute (5) Hypothyroidism: FT4 high and TSH low. Was being over corrected Status: Acute (6) Weakness: Possibly due to thyroid dis, anemia, Status: Acute (7) Cystocele with second degree uterine prolapse: s/p Hysterectomy Post Op Day 2 Status: Acute (8) Recurrent UTI: Has Pyuria, Bacturia Status: Acute (9) Abnormal liver function test: High transaminases. Very likely due to Macrobid. Less likely r/o Viral Hepatitis Status: Acute (10) Elevated troponin I level: Possibly Mycardial Ischemia during the hypotensive period Status: Acute Plan Decrease Synthroid 88 mcg qd D/C Macrobid Urine C/S Cardiology consult ECHO pending Carotid Doppler CT pend Hepatitis Panel Attestations Medical Necessity Statement*: Pt has multiple medical issues: Pre Syncope, At Fib, high Troponins, Abnormal Liver Function that will require further eval and management. Continue hospitalization Time Spent in Patient Care: 45 min Coding Level of Care Code Acute Blending Machine Operator for Chg Fwd Diagnoses Pre-syncope R55 Acute blood loss anemia D62 Atrial fibrillation I48.91 Benign hypertension I10 Hypothyroidism E03.9 Weakness R53.1 Cystocele with second degree uterine prolapse N81.2 Recurrent UTI N39.0 Abnormal liver function test R79.89 Elevated troponin I level R77.8
[2021-09-11 12:11] VITALS: BP 103/68; PULSE 77; RESP 18; TEMP 36.8; O2SAT 97
--- NOTE | 2021-09-11 13:36 | PM.CONSULT ---
Providers/Reason For Consult Consulting Physician/Specialty*: Cardiovascular medicine Reason for Consult*: Near syncope Requesting Physician: Hospitalist and Dr. Monk Attending Physician: Pietro Monk MD Primary Care Provider: Krystina Gay APN History of Present Illness History of Present Illness Catrina Ellis is a 66 year old female who was admitted electively a couple days ago for a gynecologic procedure. She had total vaginal hysterectomy and a vaginal salpingo-oophorectomy for uterine prolapse and a cystocele. The patient told me that the night before she came in she was having some fluttering in her heart, stopping and stuttering and fast heart rates. She tells me that she has been diagnosed with SVT in the past. She apparently is taken care of by hydro plant technician in [place]. She takes flecainide and verapamil for the atrial dysrhythmia. The morning after surgery patient was on the toilet, became lightheaded and felt like she was going to pass out. Rapid response was called and she was transported to the second floor. She has had an echo which reveals an ejection fraction of 60% with mild to moderate mitral regurgitation. EKG is during and right after the episode of revealed atrial fibrillation with a rapid ventricular response. She is now back in a sinus rhythm. Her hemoglobin has dropped to 10.6. Her transaminases are elevated. Her initial troponin was 30, the second was 24 and the third down to 21 which gives her a negative delta. TSH was normal. She was seen in the emergency room on August 04 with chest pain. At that time she was hypertensive and was placed on lisinopril. Currently she is back to normal. She seems to be worried about her previous history of SVT. Medications/Allergies Home Medications Medication Instructions Recorded Confirmed Last Taken Type aspirin 81 mg tablet,delayed 81 mg PO .HS tab 03/27/20 09/09/21 09/06/21 History release (Adult Aspirin Regimen) levothyroxine 100 mcg capsule 100 mcg PO DAILY 03/27/20 09/09/21 09/08/21 History verapamil 180 mg 24 hr 180 mg PO QAM 03/27/20 09/09/21 09/08/21 History capsule,extended release flecainide 50 mg tablet 100 mg PO BID tab 05/15/20 09/09/21 09/08/21 History lisinopril 10 mg tablet 5 mg PO DAILY tab 08/07/21 09/09/21 09/08/21 History calcium carbonate 500 mg calcium 500 mg PO DAILY 08/17/21 09/09/21 09/08/21 History (1,250 mg) tablet (Calcium 500) cholecalciferol (vitamin D3) 10 50 mcg PO DAILY 08/17/21 09/09/21 09/02/21 History mcg (400 unit) capsule mecobalamin (vitamin B12) 1,000 1,000 mcg PO DAILY 08/17/21 09/09/21 09/02/21 History mcg chewable tablet nitrofurantoin 100 mg PO BID #60 cap 08/17/21 09/09/21 09/08/21 Rx monohydrate/macrocrystals 100 mg capsule (Macrobid) Allergies Allergy/AdvReac Type Severity Reaction Status Date / Time No Known Allergies Allergy Verified 09/08/21 08:17 Current Medications Generic Name Dose Route Start Last Admin Trade Name Freq PRN Reason Stop Dose Admin Hydrocodone Bitart/Acetaminophen 1 - 2 tab 09/09/21 11:14 09/10/21 09:51 Hydrocodone-Acetaminophen 5-325 Mg Tablet PO 1 tab Q6H PRN Administration MODERATE TO SEVERE PAIN Aspirin 81 mg 09/09/21 21:00 09/10/21 21:04 Aspirin 81 Mg Ec Tablet PO 81 mg BEDTIME SIDNEY Administration Docusate Sodium 100 mg 09/09/21 18:00 09/11/21 08:35 Docusate Sodium 100 Mg Capsule PO 100 mg BID SIDNEY Administration Flecainide Acetate 100 mg 09/09/21 18:00 09/11/21 08:43 Flecainide 100 Mg Tablet PO 100 mg BID SIDNEY Administration Sodium Chloride 1,000 mls @ 75 mls/hr 09/10/21 15:15 09/11/21 05:14 Sodium Chloride 0.9% IV 75 mls/hr .[id number] SIDNEY Administration Ibuprofen 800 mg 09/10/21 10:00 09/11/21 08:35 Ibuprofen 800 Mg Tablet PO 800 mg Q8H SIDNEY Administration Levothyroxine Sodium 88 mcg 09/11/21 06:00 09/11/21 05:12 Levothyroxine 88 Mcg Tablet PO 88 mcg QAM SIDNEY Administration Verapamil HCl 180 mg 09/10/21 06:00 09/11/21 05:12 Verapamil Er 180 Mg Tablet PO 180 mg QAM SIDNEY Administration PFSH Acute PFSH: Medical History History of nonmelanoma skin cancer Hypothyroidism Recurrent UTI Surgical History History of bilateral tubal ligation History of cholecystectomy History of thyroid surgery Family History Grandmother Cancer Lung Cancer Diabetes maternal and maternal great grandmother Sister No problems noted. Mother , AT AGE 63 Cancer Breast Cancer and Liver Cancer Breast cancer mid 50's Father , AT AGE 71 No problems noted. Son Hypertension Diabetes Heart disease Family/Other Colon cancer paternal cousins x2 age onset unknown Denies family history of Ovarian cancer Clotting disorder Hyperlipidemia Anesthesia complication Bleeding disorder Uterine cancer Thyroid condition Stroke Social History Smoking and tobacco status: never smoked Alcohol intake: never Marital status: Current occupational status: retired History of recent travel: No Vitals/I&O/Wt Last Vital Signs Temp 98.2 F 09/11/21 12:11 Pulse 77 09/11/21 12:11 Resp 18 09/11/21 12:11 BP 103/68 09/11/21 12:11 Pulse Ox 97 09/11/21 12:11 09/10/21 09/11/21 09/11/21 22:59 06:59 14:59 Intake Total 960 / 1860 927.5 / 2787.5 976 / 976 Output Total 1900 / 2350 720 / 3070 2250 / 2250 Balance -940 / -490 207.5 / -282.5 -1274 / -1274 Physical Exam Narrative: GENERAL: In general she looks and feels well HEENT: Exam within normal limits. NECK: Supple without jugular vein distention. The carotid upstroke is normal without bruits. BACK: Exam normal. LUNGS: Clear. HEART: Regular rate and rhythm. ABDOMEN: Benign without organomegaly or tenderness. EXTREMITIES: No edema. NEUROLOGIC: Exam normal. SKIN: Unremarkable. Urinary Catheter Management: Huff: Cath Placed During This Visit: yes, but has since been removed by the nurse Reason for Continuing Indwelling Catheter: Decision to DC Catheter Urinary Catheter Date of Insertion: 09/10/21 Urinary Catheter Time of Insertion: 18:15 Date Urinary Catheter Removed: 09/11/21 Time Urinary Catheter Discontinued: 11:11 Data : 09/10/21 13:10 09/10/21 13:10 Micro: Microbiology 09/09/21 06:12 Urine Culture - Final Urine,Clean Catch Other data: EKGs from yesterday reveal atrial fibrillation. Today's EKG reveals normal sinus rhythm. Her carotid duplex reveals mild plaque on the right slightly above 50% and less than 50% on the left. A&P Assessment and plan (1) Elevated troponin I level: Status: Acute (2) Abnormal liver function test: Status: Acute (3) Pre-syncope: Status: Acute (4) Acute blood loss anemia: Status: Acute (5) Hypotension: Status: Acute (6) Atrial fibrillation: Status: Acute Plan I think this entire episode was as a result of the stress of the surgery. Stress hormones with the surgery caused her to go into atrial fibrillation which I am sure she has a substrate for. Atrial fibrillation then caused all of the hemodynamic changes, the dizziness and near syncope. It probably also caused the mild troponin elevation. The serial troponins actually have decreased over time and so she has a negative delta. I do not think this represents cardiac ischemia. The inciting event was the surgery followed by the atrial fibrillation followed by the symptoms followed by the troponin elevation. It is now all back to baseline. I think she can go home without any further investigation. She could remain on flecainide although that is somewhat of an unusual medication to treat SVT with but now that she has documented atrial fibrillation it is not a bad idea to leave her on it especially since she has normal LV function. For now, the dose should remain the same. She requests to see Dr. De Luna in our office since her sees him. She is getting tired of driving all the way to [place] so a consult appointment with Dr. De Luna in the office would be appropriate in the near future. From my standpoint she can go home anytime. Coding Level of Care Code New Pt Acute Data Processing Auditor for Chg Fwd Patient Type New History Detailed Exam Comprehensive Medical Decision Making Moderate Complexity Diagnoses Elevated troponin I level R77.8 Abnormal liver function test R79.89 Pre-syncope R55 Acute blood loss anemia D62 Hypotension I95.9 Atrial fibrillation I48.91
--- NOTE | 2021-09-11 14:03 | PC.NURSE ---
Pt voided 125cc and had 40cc PVR. Dr. Monk notified of results and plans to DC today.
--- NOTE | 2021-09-11 17:37 | PM.OBGYDC ---
Discharge Providers VEIN ACCESS TECHNICIAN Date of Admission: 09/10/21 16:20 Date of Discharge: 09/11/21 Attending Provider at Admission: Pietro Monk MD Attending Provider at Discharge: Pietro Monk MD Primary VEIN ACCESS TECHNICIAN: Pietro Monk MD Primary Care Provider: Krystina Gay APN Diagnoses at Discharge Discharge Diagnosis (1) Elevated troponin I level: Status: Acute (2) Abnormal liver function test: Status: Acute (3) Pre-syncope: Status: Acute (4) Acute blood loss anemia: Status: Acute (5) Hypotension: Status: Acute (6) Atrial fibrillation: Status: Acute (7) Status post vaginal hysterectomy: Status: Acute (8) S/P bladder repair: Status: Acute Reason for Visit Reason for Visit: cystocele, uterine prolapse Brief History: Mrs. Chadwick is 66-year-old female admitted for planned vaginal hysterectomy with bilateral salpingo-oophorectomy, anterior colporrhaphy augmented with allograft and single incision mid urethral sling. The procedures were performed without complication. Overnight observation postop was uneventful until the patient got up to go to the bathroom to void when she experienced dizziness near syncope and the rapid response team was called. The patient was then transferred to [facility], hospitalist was consulted and cardiology was consulted. Initial EKGs show atrial fibrillation. patient was kept an additional night with telemetry observation. Quality Tech recommended outpatient follow-up and to continue with anticoagulant medication. He is afebrile and hemodynamically stable postoperative day 2. Tolerating diet well. Ambulating without difficulty. PVR within normal limits. Physical Exam Narrative: GA: Alert and oriented ?3. HEENT: WNL. Heart: Supple without jugular vein distention, Regular rate and rhythm. Lungs: Clear to auscultation bilaterally. Abdomen: Bowel sounds present, nontender. SALES ANALYTICS MANAGER: No bleeding. Extremities: No edema, no cyanosis, no calves pain. Urinary Catheter Management: Huff: Cath Placed During This Visit: yes, but has since been removed by the nurse Reason for Continuing Indwelling Catheter: Decision to DC Catheter Urinary Catheter Date of Insertion: 09/10/21 Urinary Catheter Time of Insertion: 18:15 Date Urinary Catheter Removed: 09/11/21 Time Urinary Catheter Discontinued: 11:11 History History History 3 Term 3 Miscarriages/Ectopic 0 0 Living Children 3 Discharge Data Studies Completed and Pending Completed Studies During Hospitalization Category Date Time Status CT head wo con* [id number] Routine Cat Scan 09/10/21 14:25 Completed CV carotid duplex BI* [id number] Routine Ultrasound 09/10/21 15:06 Completed CV. echo complete* [id number] Routine Ultrasound 09/10/21 14:27 Completed Pending at discharge Category Date Time Status ES surgery / GI images Routine Exams 09/09/21 06:35 Taken Miscellaneous Test Routine Lab 09/10/21 13:10 Received Pathology: Surgical [PTH] Routine Pth 09/09/21 09:48 Received Radiology Impressions Head CT 09/10/21 14:25 IMPRESSION: Negative head CT. Laboratory Results WBC 11.9 10^3/uL (4.0-10.0) H 09/10/21 13:10 RBC 3.33 10^6/uL (4.1-5.3) L 09/10/21 13:10 Hgb 10.6 g/dL (11.5-15.3) L 09/10/21 13:10 Hct 33.4 % (37.0-47.0) L 09/10/21 13:10 MCV 100.3 fl (81-99) H 09/10/21 13:10 MCH 31.8 pg (28.0-34.0) 09/10/21 13:10 MCHC 31.7 g/dL (30.0-36.0) 09/10/21 13:10 RDW 13.2 % (12.1-15.1) 09/10/21 13:10 Plt Count 184 10^3/cmm (130-400) 09/10/21 13:10 MPV 10.5 fL (7.4-10.4) H 09/10/21 13:10 Neut % (Auto) 65.0 % 09/10/21 13:10 Lymph % (Auto) 26.3 % 09/10/21 13:10 [place] % (Auto) 7.6 % 09/10/21 13:10 Eos % (Auto) 0.2 % 09/10/21 13:10 Baso % (Auto) 0.4 % 09/10/21 13:10 Neut # (Auto) 7.75 10^3/uL (1.8-7.7) H 09/10/21 13:10 Lymph # (Auto) 3.1 10^3/uL (0.8-4.8) 09/10/21 13:10 [place] # (Auto) 0.9 10^3/uL (0.2-0.9) 09/10/21 13:10 Eos # (Auto) 0.0 10^3/uL (0.0-0.8) 09/10/21 13:10 Baso # (Auto) 0.1 10^3/uL (0.0-0.1) 09/10/21 13:10 Nucleated RBC % (auto) 0 % 09/10/21 13:10 Nucleated RBCs # 0.0 /100WBC 09/10/21 13:10 Sodium 131 mmol/L (136-145) L 09/10/21 13:10 Potassium 3.7 mmol/L (3.5-5.1) 09/10/21 13:10 Chloride 99 mmol/L (98-107) 09/10/21 13:10 Carbon Dioxide 22 mmol/L (22-29) 09/10/21 13:10 Anion Gap 13.7 (5-19) 09/10/21 13:10 BUN 22 mg/dL (8-23) 09/10/21 13:10 Creatinine 1.1 mg/dL (0.5-0.9) H 09/10/21 13:10 GFR Calculation 49.4 mL/min (90-130) L 09/10/21 13:10 Glucose 124 mg/dL (65-115) H 09/10/21 13:10 POC Glucose 150 mg/dL (70-110) H 09/10/21 12:58 Calculated Osmolality 277 mOsm/kg (285-295) L 09/10/21 13:10 Calcium 8.4 mg/dL (8.5-10.5) L 09/10/21 13:10 Total Bilirubin 0.6 mg/dL (0.15-1.2) 09/10/21 13:10 AST 132 U/L (0-32) H 09/10/21 13:10 ALT 252 U/L (0-33) H 09/10/21 13:10 Alkaline Phosphatase 110 IU/L (35-105) H 09/10/21 13:10 Troponin T Baseline 30 ng/L (0-10) H 09/10/21 13:10 Troponin T 120 Minute 24.68 ng/L (0-10) H 09/10/21 17:50 Delta Troponin T -5.32 ABS# (0-10) L 09/10/21 17:50 Troponin T Hi Sens 6Hr 21.69 ng/L (0-10) H 09/10/21 19:44 Troponin T Hi Sens 6Hr Delta -8.31 ng/L (0-12) L 09/10/21 19:44 Total Protein 5.5 g/dL (6.6-8.7) L 09/10/21 13:10 Albumin 3.0 g/dL (3.5-5.2) L 09/10/21 13:10 Globulin 2.5 g/dL (1.3-4.6) 09/10/21 13:10 TSH 0.74 uIU/mL (0.27-4.20) 09/11/21 05:30 Free T4 1.84 ng/dL (0.82-1.77) H 09/11/21 05:30 Urine Color Yellow (Yellow) 09/09/21 06:12 Urine Appearance Sl hazy (CLEAR) 09/09/21 06:12 Urine pH 7 (5-7) 09/09/21 06:12 Ur Specific [place] 1.010 (1.005-1.030) 09/09/21 06:12 Urine Protein Neg (Negative) 09/09/21 06:12 Urine Glucose (UA) Norm (Normal) 09/09/21 06:12 Urine Ketones Negative (Negative) 09/09/21 06:12 Urine Blood Neg (Negative) 09/09/21 06:12 Urine Nitrate Negative (Negative) 09/09/21 06:12 Urine Bilirubin Neg (Negative) 09/09/21 06:12 Urine Urobilinogen Norm mg/dL (Negative) 09/09/21 06:12 Ur Leukocyte Esterase 2+ (Negative) H 09/09/21 06:12 Urine RBC None /hpf (0-2) 09/09/21 06:12 Urine WBC 5-10 /hpf (0-5) H 09/09/21 06:12 Ur Squamous Epith Cells 5-10 /hpf (0-5) H 09/09/21 06:12 Amorphous Sediment Not Reportable 09/09/21 06:12 Urine Bacteria 2+ /hpf (NONE) H 09/09/21 06:12 Coronavirus 229E (PCR) Not detected (NOT DETECT) 09/02/21 10:14 Hepatitis A IgM Ab Cancelled 09/11/21 05:30 Hep Bs Antigen Cancelled 09/11/21 05:30 Hep B Core IgM Ab Cancelled 09/11/21 05:30 Hepatitis C Antibody Cancelled 09/11/21 05:30 SARS-CoV-2 (PCR) Not detected (NOT DETECT) 09/02/21 10:14 Blood Type O Negative 09/09/21 06:44 Rho(D) Type Negative 09/09/21 06:44 Antibody Screen Negative 09/09/21 06:44 Vitals Last Vital Signs Temp 98.2 F 09/11/21 12:11 Pulse 77 09/11/21 12:11 Resp 18 09/11/21 12:11 BP 103/68 09/11/21 12:11 Pulse Ox 97 09/11/21 12:11 Discharge Plan Discharge Patient Disposition: Home Condition: Stable Prescriptions: New hydrocodone-acetaminophen 5-325 mg tablet 1 tab PO Q4H PRN (Reason: pain) Qty: 20 0RF acetaminophen 325 mg capsule 325 mg PO Q4H PRN (Reason: fever or pain) Qty: 60 0RF ibuprofen 800 mg tablet 800 mg PO TID PRN (Reason: pain) Qty: 60 0RF docusate sodium [Colace] 100 mg capsule 100 mg PO BID Qty: 30 0RF Continued verapamil 180 mg capsule,ext rel. pellets 24 hr 180 mg PO QAM 0RF levothyroxine 100 mcg capsule 100 mcg PO DAILY 0RF aspirin [Adult Aspirin Regimen] 81 mg tablet,delayed release (DR/EC) 81 mg PO .HS 0RF flecainide 50 mg tablet 100 mg PO BID 0RF cholecalciferol (vitamin D3) 10 mcg (400 unit) capsule 50 mcg PO DAILY 0RF calcium carbonate [Calcium 500] 500 mg calcium (1,250 mg) tablet 500 mg PO DAILY 0RF mecobalamin (vitamin B12) 1,000 mcg tablet,chewable 1,000 mcg PO DAILY 0RF nitrofurantoin monohyd/m-cryst [Macrobid] 100 mg capsule 100 mg PO BID Qty: 60 1RF Rx Instructions: must administer with a meal/food lisinopril 10 mg tablet 5 mg PO DAILY 0RF Discharge Orders: Discharge Order (Routine); Ordered 09/11/21 Ordered By: Pietro Monk Referrals: Pietro Monk MD [Physician] - 09/25/21 9:15 am (Your 2 week post-operative appointment is scheduled for 09/25/21 @9:15. Your 6 week post-operative appointment is scheduled for 10/23/21 @8:45. ) Krystina Gay, MANAGING CONSULTANT CLINICAL PROFESSOR [Primary Care Provider] - Discharge Diet: Usual diet Discharge Activity: Limit activity as instructed Patient Instructions: Cystocele (DC), Uterine Prolapse (DC), Vaginal Hysterectomy (DC), OB Discharge Report, OB Food/Drug Interaction Guide, Opioid Safety, Bladder Sling for Women (GEN), Anterior Vaginal Repair (GEN) Activity Restrictions/Additional Instructions: 1. Please call [facility] on next working day to make your post-operative appointment in 2 weeks. 2. Please stay home until you come back to the clinic on first post-operative check up. 3. Please follow instructions on your medications CAREFULLY. 4. If you have abdominal incision, do not cover it unless dressing is necessary because of drainage. OK to shower, but avoid bath. Leave steri-strips until they fall off. If they are still on one week after surgery, you may remove them. 5. If you had vaginal surgery or vaginal repair, Dr. Monk may instruct you to take SITZ bath. 6. Yellow, blood tinged odorous vaginal discharge is usually normal after hysterectomy or vaginal surgeries. 7. No sexual intercourse, tampons, or douches until you are completely released from the post-operative care. 8. Avoid constipation by eating right and maybe using some Metamucil or Milk of Magnesia. 9. All prescription refills are given during the working hours. Please do no wait till it runs out. Call the clinic at [phone] before your medication runs out. The clinic will get in touch with your doctor to prescribe medications if necessary. 10. Please remain within 40 mile radius from our hospital because emergencies do happen now and then during the post-operative period. 11. If you have stairs at home, take one step at a time slowly and minimize the number of trips. It helps to stay in one floor for the next few days. No lifting except what you can lift by one hand until you are released from the post-operative care. 12. Driving is discouraged until you are well healed. It may be 3-4 weeks before you feel strong enough to drive. You should be able to turn and look through the rear window without pain and you should be able to push the brake pedal very hard without pain before you drive. No fast rules, but SAFETY should be your primary concern. DO NOT drive if you are on sedating medications such as narcotics. 13. Call the clinic (during working hours) to make urgent appointment or go to the Emergency room, if any of the following occurs: i. Vaginal bleeding becomes heavy, more than a period. ii. Incision becomes red and sore, or drains pus. iii. Your temperature is over 100.4 or you have chill. iv. IV site becomes red and swollen (a little ``knot?? is usually OK) v. Persistent nausea and vomiting vi. Persistent constipation or diarrhea vii. Rash or allergic reaction to medications. Discharge Attestations VEIN ACCESS TECHNICIAN Time Spent in Discharge Care*: greater than 30 min Coding Level of Care Code Acute Printing Shop Supervisor for Chg Fwd Diagnoses Elevated troponin I level R77.8 Abnormal liver function test R79.89 Pre-syncope R55 Acute blood loss anemia D62 Hypotension I95.9 Atrial fibrillation I48.91 Status post vaginal hysterectomy Z90.710 S/P bladder repair Z98.890
== END 2021-09-11 18:32 | disposition home or self-care (01) | DRG 982 ==
LOC: OBGYN 11:11 → MEDSURG 09-10 13:54
PROVIDERS: Internal Medicine; Admitting Provider Obstetrics & Gynecology; PCP Nurse Practitioner; Visit Provider Obstetrics & Gynecology
PROC: 0UT27ZZ Resection of Bilateral Ovaries, Via Natural or Artificial Opening (ICD-10-PCS; principal; 2021-09-09 07:00)
PROC: 0UT27ZZ Resection of Bilateral Ovaries, Via Natural or Artificial Opening (ICD-10-PCS; CPT 58720; 2021-09-09 07:00)
PROC: 0UT27ZZ Resection of Bilateral Ovaries, Via Natural or Artificial Opening (ICD-10-PCS; CPT 57288; 2021-09-09 07:00)
PROC: 0UT27ZZ Resection of Bilateral Ovaries, Via Natural or Artificial Opening (ICD-10-PCS; CPT 57282; 2021-09-09 07:00)
PROC: 0TJB8ZZ Inspection of Bladder, Via Natural or Artificial Opening Endoscopic (ICD-10-PCS; CPT 52000; 2021-09-09 07:00)
DX: I48.91 Unspecified atrial fibrillation (principal); D62 Acute posthemorrhagic anemia; N81.2 Incomplete uterovaginal prolapse; K59.00 Constipation, unspecified; Z87.440 Personal history of urinary (tract) infections; Z79.82 Long term (current) use of aspirin; Z85.828 Personal history of other malignant neoplasm of skin; E89.0 Postprocedural hypothyroidism; I95.9 Hypotension, unspecified; I10 Essential (primary) hypertension
CPT/HCPCS: 36415; 36416; 51702; 51798; 70450; 80053; 80074; 81001; 82962; 84439; 84443; 84484; 85025; 85027; 86709; 86850; 86900; 87086; 88305; 93005; 93306; 93880; C1713; C1762; G0378; J1100; J1170; J1200; J1650; J1885; J1940; J1956; J2250; J2370; J2405; J2704; J2710; J3010; J3490; J7030; J7040

== ENCOUNTER → 2021-09-23 09:17 | Outpatient (BNVA) | payer MEDICARE, OTHER, SELFPAY | PROVIDERS: PCP Nurse Practitioner; Visit Provider Nurse Practitioner Family | DX: N39.0 Urinary tract infection, site not specified (principal); R79.89 Other specified abnormal findings of blood chemistry | CPT/HCPCS: 80053; 81003; 87086 ==

== ENCOUNTER → 2021-10-22 08:40 | Outpatient (BNVA) | payer MEDICARE, OTHER, SELFPAY | PROVIDERS: PCP Nurse Practitioner; Visit Provider Urology | DX: N39.0 Urinary tract infection, site not specified (principal) | CPT/HCPCS: 81003; 99213 ==

== ENCOUNTER → 2021-11-25 16:04 | Outpatient (BNVA) | payer MEDICARE, OTHER, SELFPAY | PROVIDERS: PCP Nurse Practitioner Family; Visit Provider Internal Medicine Cardiovascular Disease | DX: R00.2 Palpitations (principal); R03.0 Elevated blood-pressure reading, without diagnosis of hypertension; I48.91 Unspecified atrial fibrillation; I63.239 Cerebral infarction due to unspecified occlusion or stenosis of unspecified carotid artery; I34.0 Nonrheumatic mitral (valve) insufficiency; I49.1 Atrial premature depolarization; I49.3 Ventricular premature depolarization | CPT/HCPCS: 93005; 93229; 99214; 99215 ==

== ENCOUNTER 2022-01-11 14:02 | Outpatient (CLI) | payer MEDICARE, OTHER, SELFPAY ==
[2022-01-11 15:13] LABS: Alanine Aminotransferase 25 U/L (0-33); Albumin Level 3.9 g/dL (3.5-5.2); Alkaline Phosphatase 128 IU/L (35-105); Anion Gap 12.6 (5-19); Aspartate Amino Transferase 21 U/L (0-32); Blood Urea Nitrogen 21 mg/dL (8-23); Carbon Dioxide 27 mmol/L (22-29); Chloride 106 mmol/L (98-107); Globulin 2.9 g/dL (1.3-4.6); Glomerular Filtration Rate 71.3 mL/min (90-130); Glucose 112 mg/dL (65-115); Osmolality Calculated 296 mOsm/kg (285-295); Potassium 4.6 mmol/L (3.5-5.1); Sodium 141 mmol/L (136-145); Total Bilirubin 0.6 mg/dL (0.15-1.2); Total Protein 6.8 g/dL (6.6-8.7)
== END 2022-01-11 14:03 | disposition home or self-care (01) ==
LOC: LAB 14:07
PROVIDERS: PCP Nurse Practitioner Family; Visit Provider Urology
DX: N39.0 Urinary tract infection, site not specified (principal); R79.89 Other specified abnormal findings of blood chemistry
CPT/HCPCS: 36415; 80053; 81003; 99213

== ENCOUNTER 2022-01-21 08:23 | Outpatient (CLI) | payer MEDICARE, OTHER, SELFPAY ==
--- NOTE | 2022-01-21 08:31 | MM_ITS ---
WS: [id number] BILATERAL SCREENING DIGITAL TOMOSYNTHESIS MAMMOGRAM WITH CAD HISTORY: SCREENING COMPARISON: 09/18/2020, 03/12/2019 Bilateral CC and MLO views with tomosynthesis and synthetic mammography submitted. Computer aided det ection analyzed. Breast composition: There are scattered areas of fibroglandular density. No suspicious masses, microc alcifications or architectural distortion. Stable asymmetries and arterial calcifications within each breast. MM/[place] [id number] IMPRESSION: BI-RADS: 2-Benign FOLLOW UP: 1 Year Follow-up
== END 2022-01-21 08:24 | disposition home or self-care (01) ==
LOC: RAD 08:25
PROVIDERS: PCP Nurse Practitioner Family; Visit Provider Nurse Practitioner Family
DX: Z12.31 Encounter for screening mammogram for malignant neoplasm of breast (principal)
CPT/HCPCS: 77063; 77067

== ENCOUNTER → 2022-03-08 10:30 | Outpatient (BNVA) | payer MEDICARE, OTHER, SELFPAY | PROVIDERS: Visit Provider Family Medicine | DX: I10 Essential (primary) hypertension (principal); E03.9 Hypothyroidism, unspecified; I48.91 Unspecified atrial fibrillation | CPT/HCPCS: 80053; 80061; 84443; 85025 ==

== ENCOUNTER 2022-03-24 21:20 | Observation (INO) | payer MEDICARE, OTHER, SELFPAY ==
[2022-03-24 21:23] VITALS: BP 181/115; PULSE 114; RESP 16; O2SAT 100; BMI 29.2
--- NOTE | 2022-03-24 21:47 | W.ED.CHESTPA ---
HPI - Chest Pain General: Chief Complaint: Chest Pain Stated Complaint: high bp Time Seen by Provider: 03/24/22 21:47 History of Present Illness: Ms. Ellis is a 66-year-old lady with history of arrhythmia, stroke, valvular heart disease, thyroid disorder who presents to the emergency department due to abnormal feeling. She notes over the past few days that her blood pressures been higher and more variable including significantly elevated earlier this morning. She had associated shakiness, clamminess, palpitations and perioral bilateral tingling. She does report overall feeling jumpy and nervous. Course of symptoms has worsened. Intensity is moderate. She does report that she was adjusting her antihypertensive as her blood pressure was too low for some period of time. No other specific changes in health, exacerbating, or alleviating factors identified.. Onset (ago): day(s) Timing of current episode: episodic Prior episodes: No Onset: during rest Severity: moderate Associated symptoms: Reports diaphoresis, nausea, palpitations and other Review of Systems General: Reports: 10 or more systems reviewed and unremarkable except in HPI and below Const: Reports: diaphoresis Card: Reports: palpitations GI: Reports: nausea PFSH ED PFSH: Medical History Atrial fibrillation Atypical chest pain Benign hypertension History of nonmelanoma skin cancer History of paroxysmal supraventricular tachycardia Hypothyroidism Mitral regurgitation Recurrent UTI Shingles Surgical History History of bilateral tubal ligation History of cholecystectomy History of thyroid surgery Hx of hysterectomy Total vag S/P bladder repair Status post vaginal hysterectomy Family History Grandmother Cancer Lung Cancer Diabetes maternal and maternal great grandmother Sister No problems noted. Mother , AT AGE 63 Cancer Breast Cancer and Liver Cancer Breast cancer mid 50's Father , AT AGE 71 No problems noted. Son Hypertension Diabetes Heart disease Family/Other Colon cancer paternal cousins x2 age onset unknown Denies family history of Ovarian cancer Clotting disorder Hyperlipidemia Anesthesia complication Bleeding disorder Uterine cancer Thyroid condition Stroke Social History Smoking and tobacco status: never smoked Alcohol intake: never Marital status: Current occupational status: retired History of recent travel: No Physical Exam Const: COMMON NORMALS: patient oriented x3 and alert GENERAL APPEARANCE: cooperative and well developed HENMT: COMMON NORMALS: normocephalic and atraumatic HEAD & SCALP: normocephalic and atraumatic Eye: COMMON NORMALS: conjunctivae normal CONJUNCTIVA: Yes conjunctivae normal SCLERA: sclerae normal Neck/C-Spine: COMMON NORMALS: supple GENERAL: Yes trachea midline Resp: COMMON NORMALS: normal respiratory effort EFFORT & INSPECTION: Yes able to speak in complete sentences Cardio: COMMON NORMALS: regular rate and regular rhythm RATE: regular rate RHYTHM: regular rhythm GI: COMMON NORMALS: Soft to palpation PALPATION: Yes Soft to palpation and No Tenderness to palpation present (GI) Extremity: GENERAL: Yes normal exam except as noted and No edema Neuro: COMMON NORMALS: patient oriented x3, CN's II-XII intact bilaterally, moves all extremities, no focal motor deficits and no sensory deficits noted SENSORIUM/ORIENTATION: Yes alert and No Orientation impaired Psych: COMMON NORMALS: mental status grossly normal and Normal thought process present THOUGHT PROCESS: Normal thought process present Course Vital Signs: Vital signs: Vital Signs Temperature 97.6 F 03/25/22 11:36 Pulse Rate 73 03/25/22 11:36 Respiratory Rate 16 03/25/22 11:36 Blood Pressure 117/81 03/25/22 14:00 Pulse Oximetry 98 03/25/22 11:36 Oxygen Delivery Me thod 03/25/22 11:36 MDM - Chest Pain Medical Decision Making 66-year-old lady presenting with chest pain and pressure variability. EKG shows sinus rhythm with nonspecific ST segment abnormalities. Physical exam as above. Laboratory studies ablation for patient's symptoms. Chest x-ray negative for acute lobar consolidation or pneumothorax. Patient has intermediate range 2-hour troponin and is not low risk by heart score and therefore will be admitted for further cardiac evaluation. Medical Records I reviewed the patient's medical records. Lab Data I reviewed the patient's lab results. : 03/25/22 05:10 03/25/22 05:10 Radiology Impressions Chest X-Ray 03/24/22 22:06 IMPRESSION: No acute findings. Laboratory Results WBC 6.6 10^3/uL (4.0-10.0) 03/24/22 22:30 RBC 4.21 10^6/uL (4.1-5.3) 03/24/22: Hgb 13.1 g/dL (11.5-15.3) 03/24/22: Hct 40.1 % (37.0-47.0) 03/24/22: MCV 95.2 fl (81-99) 03/24/22: MCH 31.1 pg (28.0-34.0) 03/24/22: MCHC 32.7 g/dL (30.0-36.0) 03/24/22: RDW 13.2 % (12.1-15.1) 03/24/22: Plt Count 179 10^3/cmm (130-400) 03/24/22: MPV 9.9 fL (7.4-10.4) 03/24/22: Neut % (Auto) 48.4 % 03/24/22: Lymph % (Auto) 38.8 % 03/24/22: [place] % (Auto) 9.7 % 03/24/22: Eos % (Auto) 2.0 % 03/24/22: Baso % (Auto) 0.9 % 03/24/22: Neut # (Auto) 3.18 10^3/uL (1.8-7.7) 03/24/22: Lymph # (Auto) 2.6 10^3/uL (0.8-4.8) 03/24/22: [place] # (Auto) 0.6 10^3/uL (0.2-0.9) 03/24/22: Eos # (Auto) 0.1 10^3/uL (0.0-0.8) 03/24/22: Baso # (Auto) 0.1 10^3/uL (0.0-0.1) 03/24/22: Nucleated RBC % (auto) 0 % 03/24/22: Nucleated RBCs # 0.0 /100WBC 03/24/22: Sodium 138 mmol/L (136-145) 03/24/22: Potassium 4.5 mmol/L (3.5-5.1) 03/24/22 22:30 Chloride 103 mmol/L (98-107) 03/24/22 22:30 Carbon Dioxide 23 mmol/L (22-29) 03/24/22 22:30 Anion Gap 16.5 (5-19) 03/24/22 22:30 BUN 18 mg/dL (8-23) 03/24/22 22:30 Creatinine 1.0 mg/dL (0.5-0.9) H 03/24/22 22:30 GFR Calculation 55.1 mL/min (90-130) L 03/24/22:30 Glucose 110 mg/dL (65-115) 03/24/22 22:30 Calculated Osmolality 289 mOsm/kg (285-295) 03/24/22:30 Calcium 9.7 mg/dL (8.5-10.5) 03/24/22:30 Total Bilirubin 0.6 mg/dL (0.15-1.2) 03/24/22:30 AST 25 U/L (0-32) 03/24/22 22:30 ALT 26 U/L (0-33) 03/24/22 22:30 Alkaline Phosphatase 110 U/L (35-105) H 03/24/22 22:30 Troponin T Baseline 8 ng/L (0-10) 03/24/22 22:30 Troponin T 120 Minute 15.83 ng/L (0-10) H 03/25/22 00:20 Delta Troponin T 7.83 ABS# (0-10) 03/25/22 00:20 NT-Pro-B Natriuret Pep 437 pg/mL (0-125) H 03/24/22 22:30 Total Protein 7.3 g/dL (6.6-8.7) 03/24/22 22:30 Albumin 4.2 g/dL (3.5-5.2) 03/24/22 22:30 Globulin 3.1 g/dL (1.3-4.6) 03/24/22 22:30 TSH 1.25 uIU/mL (0.27-4.20) 03/24/22 22:30 Discharge Plan Discharge Patient Disposition: Placed in Observation Admit Provider: Yasmany Alexander Clinical Impression: Atypical chest pain Coding Level of Care Code ED Systems Testing Laboratory Technician for Chg Fwd Exam Comprehensive
--- NOTE | 2022-03-24 22:06 | XRR_ITS ---
PROCEDURE INFORMATION: Exam: XR Chest Exam date and time: 03/24/2022 10:11 PM Age: 66 years old Clinical indication: Other: High BP; Additional info: Palpatations TECHNIQUE: Imaging protocol: Radiologic exam of the chest. Views: 1 view. COMPARISON: CR (CHEST, ) 07/14/2021 10:10 PM FINDINGS: Lungs: Unremarkable. No consolidation. Pleural spaces: Unremarkable. No pleural effusion. No pneumothorax. Heart/Mediastinum: Unremarkable. No cardiomegaly. Bones/joints: Unremarkable. XR/XR chest 1V portable [id number] IMPRESSION: No acute findings.
--- NOTE | 2022-03-24 22:06 | ECG_ITS ---
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 Measurements Intervals [place] Rate: 95 P: 66 [place]: 222 QRS: -12 QRSD: 130 T: 218 QT: 366 QTc: 462 Interpretive Statements SINUS RHYTHM WITH FIRST DEGREE AV BLOCK POSSIBLE LEFT ATRIAL ENLARGEMENT [-0.1mV P-WAVE IN V1/V2] POSSIBLE RIGHT VENTRICULAR CONDUCTION DELAY [RSR (QR) IN V1/V2] SEPTAL MYOCARDIAL INFARCTION , PROBABLY OLD [40+ ms Q WAVE IN V1/V2] MODERATE T-WAVE ABNORMALITY, CONSIDER LATERAL ISCHEMIA MODERATE T-WAVE ABNORMALITY, CONSIDER INFERIOR ISCHEMIA Compared to ECG 09/10/2021 21:42:31 First degree AV block now present Myocardial infarct finding now present T-wave abnormality now present Possible ischemia now present Intraventricular conduction delay no longer present Electronically Signed On 03-25-2022 12:52:27 CDT by Marion Prado M.D. [id number]
[2022-03-24] MEDS: sodium chloride 0.9% 1,000 ML 999 ML IV (22:28)
[2022-03-24 22:33] LABS: Basophils # 0.1 10^3/uL (0.0-0.1); Basophils % 0.9 %; Eosinophils # 0.1 10^3/uL (0.0-0.8); Hematocrit 40.1 % (37.0-47.0); Hemoglobin 13.1 g/dL (11.5-15.3); Lymphocytes # 2.6 10^3/uL (0.8-4.8); Lymphocytes % 38.8 %; Mean Corpuscular HGB Conc 32.7 g/dL (30.0-36.0); Mean Corpuscular Hemoglobin 31.1 pg (28.0-34.0); Mean Corpuscular Volume 95.2 fl (81-99); Mean Platelet Volume 9.9 fL (7.4-10.4); Monocytes # 0.6 10^3/uL (0.2-0.9); Monocytes % 9.7 %; Neutrophils # 3.18 10^3/uL (1.8-7.7); Neutrophils % 48.4 %; Nucleated Red Blood Cells % 0 %; Platelet Count 179 10^3/cmm (130-400); Red Blood Count 4.21 10^6/uL (4.1-5.3); Red Cell Distribution Width 13.2 % (12.1-15.1); White Blood Count 6.6 10^3/uL (4.0-10.0)
[2022-03-24 22:40] VITALS: BP 171/92; PULSE 89; RESP 22; O2SAT 100
--- NOTE | 2022-03-24 22:41 | PC.NURSE ---
Patient reports concern for her blood pressure, states it was good this morning and when checked it this evening it was 174/102, patient states she takes lisinopril 10 mg daily since Tuesday, previously had cut in half and before that cut it into fourth's for 2.5 mg.
--- NOTE | 2022-03-24 22:43 | PC.NURSE ---
Patient missed hat when voiding, no urine collected
[2022-03-24 22:52] LABS: Troponin(5th) Baseline 8 ng/L (0-10)
[2022-03-24 23:02] LABS: Alanine Aminotransferase 26 U/L (0-33); Albumin Level 4.2 g/dL (3.5-5.2); Alkaline Phosphatase 110 U/L (35-105); Anion Gap 16.5 (5-19); Aspartate Amino Transferase 25 U/L (0-32); Blood Urea Nitrogen 18 mg/dL (8-23); Calcium 9.7 mg/dL (8.5-10.5); Carbon Dioxide 23 mmol/L (22-29); Chloride 103 mmol/L (98-107); Globulin 3.1 g/dL (1.3-4.6); Glomerular Filtration Rate 55.1 mL/min (90-130); Glucose 110 mg/dL (65-115); NT Pro B Type Natriuretic Pept 437 pg/mL (0-125); Osmolality Calculated 289 mOsm/kg (285-295); Potassium 4.5 mmol/L (3.5-5.1); Sodium 138 mmol/L (136-145); Thyroid Stimulating Hormone 1.25 uIU/mL (0.27-4.20); Total Bilirubin 0.6 mg/dL (0.15-1.2); Total Protein 7.3 g/dL (6.6-8.7)
[2022-03-24 23:06] VITALS: BP 140/83; PULSE 79; RESP 16; O2SAT 99
[2022-03-24 23:51] VITALS: BP 141/80; PULSE 78; RESP 21; O2SAT 99
[2022-03-25] VITALS (8 sets, daily range): BP systolic 99–155; BP diastolic 64–94; PULSE 73–98; RESP 16–19; TEMP 36.4–36.6; O2SAT 97–100
[2022-03-25 00:48] LABS: Troponin 5 2HR 15.83 ng/L (0-10)
[2022-03-25 00:49] LABS: Troponin 5 2HR Delta 7.83 ABS# (0-10)
--- NOTE | 2022-03-25 00:56 | ECG_ITS ---
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 Measurements Intervals [place] Rate: 78 P: 55 [place]: 189 QRS: -23 QRSD: 116 T: 229 QT: 424 QTc: 485 Interpretive Statements SINUS RHYTHM POSSIBLE LEFT ATRIAL ENLARGEMENT [-0.1mV P-WAVE IN V1/V2] SEPTAL MYOCARDIAL INFARCTION , PROBABLY OLD [40+ ms Q WAVE IN V1/V2] MODERATE T-WAVE ABNORMALITY, CONSIDER ANTEROLATERAL ISCHEMIA MODERATE T-WAVE ABNORMALITY, CONSIDER INFERIOR ISCHEMIA Compared to ECG 03/24/2022 21:32:37 First degree AV block no longer present Myocardial infarct finding still present T-wave abnormality still present Possible ischemia still present Electronically Signed On 03-25-2022 12:58:38 CDT by Marion Prado M.D. [id number]
[2022-03-25] MEDS: aspirin 81 mg Chew Tablet 324 MG PO (01:19)
--- NOTE | 2022-03-25 01:59 | P.HP_ITS ---
Providers/Chief Complaint Primary Care Provider: Rosalind Atkins DO Chief Complaint: high bp History of Present Illness Catrina Ellis is a 66 year old female with past medical history of hypertension, hypothyroidism, SVT, paroxysmal atrial fibrillation, came in with chief complaint of palpitation, as well as erratic blood pressure measurement at home, she was recording elevated blood pressure, and was increasing her lisinopril dose from 2.5 to 10 to control her blood pressure, she has lately also felt extra beats, she denied any chest pain shortness of breath nausea vomiting dizziness, headache abdominal pain, fever cough. Patient carries longtime history of SVT: For which she was seeing front sight attacher initially at [place] and has been on flecainide as well as verapamil for the same, recently she also had an episode of A. fib with RVR, during her last surgery, cardiology was consulted at that time, and it was thought that it has been precipitated by her surgery, she has also recently wore event monitor for a month, which was unremarkable. Upon arrival in the ER she was worked up for above-mentioned complaint : Pertinent imaging studies: X-ray chest: No acute finding EKG: Sinus rhythm, with T wave abnormalities in inferior and anterior leads. Pertinent labs: WBC 6.6, H&H 13/40 , plt: 179 , serum sodium 138 , serum potassium 4.5, BUN serum creatinine 18/ 1 , Troponin trend: 8-15 , proBNP: 437 TSH: 1.25 Review of Systems General: Reports: 10 or more systems reviewed and unremarkable except in HPI and below Const: Denies: fever(s), chills, body aches, change in appetite or diaphoresis Card: Reports: palpitations; Denies: edema, swelling of feet/ankles, dyspnea on exertion, orthopnea or leg pain with exertion Resp: Denies: dyspnea, productive cough, wheezing or pain on inspiration GI: Denies: abdominal pain, nausea, vomiting, diarrhea or constipation : Denies: flank pain Musc: Denies: back pain, extremity pain or extremity swelling Neuro: Denies: headache(s), difficulty walking or confusion Medications/Allergies Home Medications Medication Instructions Recorded Confirmed Last Taken Type aspirin 81 mg tablet,delayed 81 mg PO .HS 03/27/20 03/25/22 03/23/22 21:00 History release (Adult Aspirin Regimen) levothyroxine 100 mcg capsule 100 mcg PO DAILY 03/27/20 03/25/22 03/24/22 05:00 History calcium carbonate 500 mg calcium 500 mg PO DAILY 08/17/21 03/25/22 03/24/22 10:00 History (1,250 mg) tablet (Calcium 500) cholecalciferol (vitamin D3) 10 50 mcg PO DAILY 08/17/21 03/25/22 03/23/22 21:00 History mcg (400 unit) capsule mecobalamin (vitamin B12) 1,000 1,000 mcg PO DAILY 08/17/21 03/25/22 03/24/22 21:00 History mcg chewable tablet acetaminophen 325 mg capsule 325 mg PO Q4H PRN fever or pain 09/11/21 03/25/22 Unknown Rx #60 caps docusate sodium 100 mg capsule 100 mg PO BID PRN Constipation 10/22/21 03/25/22 Unknown History (Colace) nitrofurantoin See Rx Instructions .Route 02/18/22 03/25/22 03/24/22 07:30 Rx monohydrate/macrocrystals 100 mg .COMPLEX #60 caps capsule flecainide 50 mg tablet 100 mg PO BID #180 tabs 03/08/22 03/25/22 03/24/22 18:30 Rx lisinopril 10 mg tablet 2.5 mg PO DAILY 03/08/22 03/25/22 03/24/22 07:30 History meloxicam 15 mg tablet 15 mg PO DAILY #30 tabs 03/08/22 03/25/22 03/24/22 07:30 Rx verapamil 180 mg 24 hr 180 mg PO QAM #90 caps 03/08/22 03/25/22 03/24/22 07:30 Rx capsule,extended release Allergies Allergy/AdvReac Type Severity Reaction Status Date / Time No Known Allergies Allergy Verified 03/22/22 14:31 PFSH Acute PFSH: Medical History History of nonmelanoma skin cancer History of paroxysmal supraventricular tachycardia Hypothyroidism Recurrent UTI Shingles Surgical History History of bilateral tubal ligation History of cholecystectomy History of thyroid surgery Hx of hysterectomy Total vag S/P bladder repair Status post vaginal hysterectomy Family History Grandmother Cancer Lung Cancer Diabetes maternal and maternal great grandmother Sister No problems noted. Mother , AT AGE 63 Cancer Breast Cancer and Liver Cancer Breast cancer mid 50's Father , AT AGE 71 No problems noted. Son Hypertension Diabetes Heart disease Family/Other Colon cancer paternal cousins x2 age onset unknown Denies family history of Ovarian cancer Clotting disorder Hyperlipidemia Anesthesia complication Bleeding disorder Uterine cancer Thyroid condition Stroke Social History Smoking and tobacco status: never smoked Alcohol intake: never Marital status: Current occupational status: retired History of recent travel: No Vitals/I&O/Wt Last Vital Signs Pulse 98 03/25/22 01:21 Resp 19 H 03/25/22 01:21 BP 155/94 03/25/22 01:21 Pulse Ox 100 03/25/22 01:21 O2 Del Method 03/25/22 01:21 03/24/22 03/24/22 03/25/22 14:59 22:59 06:59 Intake Total 1000 / 1000 Balance 1000 / 1000 Weight last 48 hrs Weight 84.822 kg Physical Exam Const: COMMON NORMALS: patient oriented x3 Resp: COMMON NORMALS: clear to auscultation bilaterally EFFORT & INSPECTION: Yes symmetric chest movement AUSCULTATION: clear to auscultation bilaterally Cardio: COMMON NORMALS: regular rate, regular rhythm, S1 normal heart sound present, S2 normal heart sound present and Peripheral pulses 2+ throughout RATE: regular rate RHYTHM: regular rhythm HEART SOUNDS: S1 normal heart sound present and S2 normal heart sound present PERIPHERAL PULSES: Peripheral pulses 2+ throughout OTHER: PSM In mitral area GI: COMMON NORMALS: Normal to inspection, nondistended, normoactive bowel sounds present, Soft to palpation, non-tender, No hepatosplenomegaly present and no masses AUSCULTATION: Yes normoactive bowel sounds PALPATION: Yes Soft to palpation and Yes No hepatosplenomegaly present RECTAL EXAM: deferred Neuro: COMMON NORMALS: patient oriented x3 Data : 03/25/22 05:10 03/25/22 05:10 A&P Assessment and plan (1) Hypothyroidism: Qualifiers: Hypothyroidism type: postoperative Qualified Code(s): E89.0 - Postprocedural hypothyroidism (2) Benign hypertension: (3) Atrial fibrillation: (4) Mitral regurgitation: (5) History of paroxysmal supraventricular tachycardia: Plan 66 year old female with past medical history of hypertension, hypothyroidism, SVT, paroxysmal atrial fibrillation, came in with chief complaint of palpitati on, as well as erratic blood pressure measurement at home, she was recording elevated blood pressure, and was increasing her lisinopril dose from 2.5 to 10 to control her blood pressure, she has lately also felt extra beats, she denied any chest pain shortness of breath nausea vomiting dizziness, headache abdominal pain, fever cough. Assessment: Uncontrolled hypertension Hypothyroidism History of SVT History of paroxysmal atrial fibrillation precipitated by surgery not on anticoagulation Plan: It is possible that patient current symptoms may be precipitated by her erratic blood pressure, patient has history of SVT, she has been on flecainide as well as verapamil for long time, wore event monitor for a month, which failed to show any significant arrhythmia was normal. She describes episodes of extra heartbeats at times which prompts her to measure her blood pressure, she may benefit from long-term arrhythmia monitoring with possible loop recorder, Which can be well taken care of by her front sight attacher. For now I intend to monitor her blood pressure closely and go from there, I strongly do not feel the need for stress test at this point, as she does not have any significant risk factors, She has a recent 2D echo done pain August: Which has shown Normal left ventricular size and systolic function, EF 62 %.?No regional wall motion abnormalities. Mild-moderate mitral valve regurgitation. Thickened mitral ?valve. I will continue her chronic SVT medications: Given her recent history of A. fib: It is okay to continue both flecainide and verapamil. CODE STATUS: Full code DVT prophylaxis: On Lovenox Attestations Medical Necessity Statement*: Patient needs to be in hospital monitoring of uncontrolled hypertension, palpitation. Time Spent in Patient Care: Greater than 35 minutes (>than 50% of time spent in counselling and/or direct pt care on unit) . Coding Level of Care Code Acute Hide Puller for g Fwd Exam Expanded Problem Focused Diagnoses Hypothyroidism E89.0 Hypothyroidism type: postoperative Benign hypertension I10 Atrial fibrillation I48.91 Mitral regurgitation I34.0 History of paroxysmal supraventricular tachycardia Z86.79
[2022-03-25] MEDS: enoxaparin 40 mg/0.4 mL Syringe SUBCUT (05:08)
[2022-03-25] MEDS: verapamil ER 180 mg Tablet PO (05:08)
[2022-03-25 05:19] LABS: Basophils % 0.7 %; Eosinophils # 0.1 10^3/uL (0.0-0.8); Eosinophils % 1.5 %; Hematocrit 37.4 % (37.0-47.0); Hemoglobin 11.8 g/dL (11.5-15.3); Lymphocytes # 2.5 10^3/uL (0.8-4.8); Lymphocytes % 42.4 %; Mean Corpuscular HGB Conc 31.6 g/dL (30.0-36.0); Mean Corpuscular Hemoglobin 30.9 pg (28.0-34.0); Mean Corpuscular Volume 97.9 fl (81-99); Mean Platelet Volume 10.4 fL (7.4-10.4); Monocytes # 0.5 10^3/uL (0.2-0.9); Neutrophils # 2.71 10^3/uL (1.8-7.7); Neutrophils % 46.1 %; Nucleated Red Blood Cells % 0 %; Platelet Count 193 10^3/cmm (130-400); Red Blood Count 3.82 10^6/uL (4.1-5.3); Red Cell Distribution Width 13.2 % (12.1-15.1); White Blood Count 5.9 10^3/uL (4.0-10.0)
[2022-03-25 05:41] LABS: Troponin 5 6HR 33.11 ng/L (0-10)
[2022-03-25 05:42] LABS: Alanine Aminotransferase 20 U/L (0-33); Albumin Level 3.6 g/dL (3.5-5.2); Alkaline Phosphatase 91 U/L (35-105); Anion Gap 12.3 (5-19); Aspartate Amino Transferase 21 U/L (0-32); Blood Urea Nitrogen 15 mg/dL (8-23); Carbon Dioxide 26 mmol/L (22-29); Chloride 109 mmol/L (98-107); Globulin 2.8 g/dL (1.3-4.6); Glomerular Filtration Rate 62.3 mL/min (90-130); Glucose 98 mg/dL (65-115); Magnesium 1.9 mg/dL (1.7-2.3); Osmolality Calculated 297 mOsm/kg (285-295); Potassium 4.3 mmol/L (3.5-5.1); Sodium 143 mmol/L (136-145); Total Bilirubin 0.6 mg/dL (0.15-1.2); Total Protein 6.4 g/dL (6.6-8.7)
[2022-03-25 05:57] LABS: Troponin 5 6HR Delta 25.11 ng/L (0-12)
[2022-03-25] MEDS: levothyroxine 100 mcg Tablet PO (08:29)
[2022-03-25] MEDS: flecainide 100 mg Tablet PO (08:29)
--- NOTE | 2022-03-25 12:10 | P.DS_ITS ---
Discharge Providers Date of Admission: 03/25/22 02:20 Date of Discharge: March 25, 2022 Attending Provider at Admission: Yasmany Alexander MD Attending Provider at Discharge: Iqra Virgen MD Primary Care Provider: Roslaind Atkins DO Diagnoses at Discharge Discharge Diagnosis (1) Hypothyroidism: Status: Acute Qualifiers: Hypothyroidism type: postoperative Qualified Code(s): E89.0 - Postprocedural hypothyroidism (2) Benign hypertension: Status: Acute (3) Atrial fibrillation: Status: Acute (4) Mitral regurgitation: Status: Acute (5) History of paroxysmal supraventricular tachycardia: Status: Acute Reason for Visit Reason for Visit: high bp Hospital Course Hospital Course 66-year-old female who recently had Holter monitoring done which did not show significant tachyarrhythmia, follows up with Dr. De Luna presented to the hospital with chief complaint palpitation and high blood pressure. Patient was taking blood pressure at home very frequent admit her extra anxious and she started noticing some palpitations. She has had to come to the hospital she was evaluated for overnight monitoring. Troponin most likely related to tachyarrhythmia, no active chest pain, at the time of discharge I will increase the dose of lisinopril I have asked her to take blood pressure twice a day instead of doing it every hour. She never had any chest pain or shortness of breath. She appears very anxious at the time of my evaluation she is already getting flecainide and verapamil for her palpitation at home. I will have her follow-up with Dr. De Luna. She might need a loop recorder for her recurrent palpitations. Normal TSH. She has an appointment Dr. De Luna on 27 May. Physical Exam Narrative: Patient is awake and alert S1, S2 Blood pressure is stable Currently patient is on room air Abdomen soft Nonfocal neuro exam Discharge Data Studies Completed and Pending Completed Studies During Hospitalization Category Date Time Status XR chest 1V portable [id number] Stat Exams 03/24/22 22:06 Completed Radiology Impressions Chest X-Ray 03/24/22 22:06 IMPRESSION: No acute findings. Laboratory Results WBC 5.9 10^3/uL (4.0-10.0) 03/25/22 05:10 RBC 3.82 10^6/uL (4.1-5.3) L 03/25/22 05:10 Hgb 11.8 g/dL (11.5-15.3) 10/13/22 05:10 Hct 37.4 % (37.0-47.0) 03/25/22 05:10 MCV 97.9 fl (81-99) 03/25/22 05:10 MCH 30.9 pg (28.0-34.0) 03/25/22 05:10 MCHC 31.6 g/dL (30.0-36.0) 03/25/22 05:10 RDW 13.2 % (12.1-15.1) 03/25/22 05:10 Plt Count 193 10^3/cmm (130-400) 03/25/22 05:10 MPV 10.4 fL (7.4-10.4) 03/25/22 05:10 Neut % (Auto) 46.1 % 03/25/22 05:10 Lymph % (Auto) 42.4 % 03/25/22 05:10 [place] % (Auto) 9.0 % 03/25/22 05:10 Eos % (Auto) 1.5 % 03/25/22 05:10 Baso % (Auto) 0.7 % 03/25/22 05:10 Neut # (Auto) 2.71 10^3/uL (1.8-7.7) 03/25/22 05:10 Lymph # (Auto) 2.5 10^3/uL (0.8-4.8) 03/25/22 05:10 [place] # (Auto) 0.5 10^3/uL (0.2-0.9) 03/25/22 05:10 Eos # (Auto) 0.1 10^3/uL (0.0-0.8) 03/25/22 05:10 Baso # (Auto) 0.0 10^3/uL (0.0-0.1) 03/25/22 05:10 Nucleated RBC % (auto) 0 % 03/25/22 05:10 Nucleated RBCs # 0.0 /100WBC 03/25/22 05:10 Sodium 143 mmol/L (136-145) 03/25/22 05:10 Potassium 4.3 mmol/L (3.5-5.1) 03/25/22 05:10 Chloride 109 mmol/L (98-107) H 03/25/22 05:10 Carbon Dioxide 26 mmol/L (22-29) 03/25/22 05:10 Anion Gap 12.3 (5-19) 03/25/22 05:10 BUN 15 mg/dL (8-23) 03/25/22 05:10 Creatinine 0.9 mg/dL (0.5-0.9) 03/25/22 05:10 GFR Calculation 62.3 mL/min (90-130) L 03/25/22 05:10 Glucose 98 mg/dL (65-115) 03/25/22 05:10 Calculated Osmolality 297 mOsm/kg (285-295) H 03/25/22 05:10 Calcium 9.0 mg/dL (8.5-10.5) 03/25/22 05:10 Magnesium 1.9 mg/dL (1.7-2.3) 03/25/22 05:10 Total Bilirubin 0.6 mg/dL (0.15-1.2) 03/25/22 05:10 AST 21 U/L (0-32) 03/25/22 05:10 ALT 20 U/L (0-33) 03/25/22 05:10 Alkaline Phosphatase 91 U/L (35-105) 03/25/22 05:10 Troponin T Baseline 8 ng/L (0-10) 03/24/22 22:30 Troponin T 120 Minute 15.83 ng/L (0-10) H 03/25/22 00:20 Delta Troponin T 7.83 ABS# (0-10) 03/25/22 00:20 Troponin T Hi Sens 6Hr 33.11 ng/L (0-10) H 03/25/22 05:10 Troponin T Hi Sens 6Hr Delta 25.11 ng/L (0-12) H* 03/25/22 05:10 NT-Pro-B Natriuret Pep 437 pg/mL (0-125) H 03/24/22 22:30 Total Protein 6.4 g/dL (6.6-8.7) L 03/25/22 05:10 Albumin 3.6 g/dL (3.5-5.2) 03/25/22 05:10 Globulin 2.8 g/dL (1.3-4.6) 03/25/22 05:10 TSH 1.25 uIU/mL (0.27-4.20) 03/24/22 22:30 Vitals Last Vital Signs Temp 97.6 F 03/25/22 11:36 Pulse 73 03/25/22 11:36 Resp 16 03/25/22 11:36 BP 99/64 03/25/22 11:36 Pulse Ox 98 03/25/22 11:36 O2 Del Method 03/25/22 11:36 Discharge Plan Discharge Patient Disposition: Home Condition: Stable Prescriptions: Continued levothyroxine 100 mcg capsule 100 mcg PO DAILY aspirin [Adult Aspirin Regimen] 81 mg tablet,delayed release (DR/EC) 81 mg PO .HS cholecalciferol (vitamin D3) 10 mcg (400 unit) capsule 50 mcg PO DAILY calcium carbonate [Calcium 500] 500 mg calcium (1,250 mg) tablet 500 mg PO DAILY mecobalamin (vitamin B12) 1,000 mcg tablet,chewable 1,000 mcg PO DAILY flecainide 50 mg tablet 100 mg PO BID Qty: 180 1RF Rx Instructions: 340 B verapamil 180 mg capsule,ext rel. pellets 24 hr 180 mg PO QAM Qty: 90 1RF Rx Instructions: 340 B meloxicam 15 mg tablet 15 mg PO DAILY Qty: 30 0RF Colace 100 mg capsule 100 mg PO BID PRN (Reason: Constipation) nitrofurantoin monohyd/m-cryst 100 mg capsule See Rx Instructions .ROUTE .COMPLEX Qty: 60 2RF Dose Instruction: TAKE 1 CAPSULE BY MOUTH TWICE A DAY MUST BE TAKEN WITH FOOD Rx Instructions: TAKE 1 CAPSULE BY MOUTH TWICE A DAY MUST BE TAKEN WITH FOOD acetaminophen 325 mg capsule 325 mg PO Q4H PRN (Reason: fever or pain) Qty: 60 0RF Changed lisinopril 10 mg tablet 20 mg PO DAILY Qty: 30 0RF Discharge Orders: Discharge Order (Routine); Ordered 03/25/22 Ordered By: Iqra Virgen Referrals: Rosalind Atkins DO [Primary Care Provider] - 1-3 days Patient Instructions: Opioid Safety Discharge Attestations Time Spent in Discharge Care*: less than 30 min Quality Metrics Clinical Quality Measures [ No reported AMI, CVA or VTE this stay] Coding Level of Care Code Acute Chg FW DC note Diagnoses Hypothyroidism E89.0 Hypothyroidism type: postoperative Benign hypertension I10 Atrial fibrillation I48.91 Mitral regurgitation I34.0 History of paroxysmal supraventricular tachycardia Z86.79
== END 2022-03-25 14:52 | disposition home or self-care (01) ==
LOC: ER 03-25 01:14 → MEDSURG 03-25 02:21
PROVIDERS: Admitting Provider Internal Medicine; Emergency Provider Emergency Medicine; PCP Family Medicine; Visit Provider Internal Medicine
DX: E89.0 Postprocedural hypothyroidism (principal); I10 Essential (primary) hypertension; I34.0 Nonrheumatic mitral (valve) insufficiency; Z86.79 Personal history of other diseases of the circulatory system; Z79.82 Long term (current) use of aspirin; I48.0 Paroxysmal atrial fibrillation
CPT/HCPCS: 71045; 80053; 83735; 83880; 84443; 84484; 85025; 93005; 96372; 99285; G0378; J1650; J7030

== ENCOUNTER → 2022-04-13 14:58 | Outpatient (BNVA) | payer MEDICARE, OTHER, SELFPAY | PROVIDERS: PCP Family Medicine; Visit Provider Urology | DX: N39.0 Urinary tract infection, site not specified (principal) | CPT/HCPCS: 81003; 99213 ==

== ENCOUNTER → 2022-05-27 09:57 | Outpatient (BNVA) | payer MEDICARE, OTHER, SELFPAY | PROVIDERS: PCP Family Medicine; Visit Provider Internal Medicine Cardiovascular Disease | DX: I10 Essential (primary) hypertension (principal); I63.239 Cerebral infarction due to unspecified occlusion or stenosis of unspecified carotid artery; E89.0 Postprocedural hypothyroidism; Z86.79 Personal history of other diseases of the circulatory system; I44.0 Atrioventricular block, first degree; I45.89 Other specified conduction disorders; R94.31 Abnormal electrocardiogram [ECG] [EKG] | CPT/HCPCS: 93005; 99214 ==

== ENCOUNTER 2022-06-22 14:37 | Outpatient (CLI) | payer MEDICARE, OTHER, SELFPAY ==
--- NOTE | 2022-06-22 15:00 | USCV_ITS ---
Catrina Ellis Age: 67 Gender: F : 1955 Exam Date: 06/22/2022 15:11 Ordering Phys: Lucía De Luna MD ([email or web address]) Technologist: ARUNA Exam Location: [facility] [place] Indication: STENOSIS Risk Factors: Previous Vascular Surgery: Right Brachial BP: / Left Brachial BP: / Right Left Velocity (cm/s) Spectral Plaque Velocity (cm/s) Spectral Plaque Syst/Diast Broadening Syst/Diast Broadening 83.70/ 17.90 Prox CCA 84.60 / 24.80 79.50/ 23.90 Mid CCA 90.60 / 29.10 90.60/ 29.90 Distal CCA 100.00/ 28.20 46.50/ 16.30 Prox ICA 80.80 / 25.60 64.00/ 26.00 Mid ICA 59.30 / 20.90 73.10/ 30.80 Distal ICA 57.10 / 21.40 89.70 ECA 90.90 0.81 ICA/CCA 0.81 Vertebral 49.10/ 9.00 cm/s 66.80/ 23.30 cm/s Subclavian 109.2 125.7 0 0 CONCLUSIONS Right ICA stenosis <50%. Mild atheromatous plaque right carotid bulb/ICA. Left ICA stenosis <50%. Mild atheromatous plaque left carotid bulb/ICA. Normal antegrade Doppler flow noted in the right vertebral artery. Normal antegrade Doppler flow noted in the left vertebral artery. Pavan Lugo MD (Electronically Signed) Final Date: 22 June 2022 17:20 S
== END 2022-06-22 14:38 | disposition home or self-care (01) ==
PROVIDERS: PCP Family Medicine; Visit Provider Internal Medicine Cardiovascular Disease
DX: I65.23 Occlusion and stenosis of bilateral carotid arteries (principal); R55 Syncope and collapse
CPT/HCPCS: 93880

== ENCOUNTER → 2022-08-03 10:16 | Outpatient (BNVA) | payer MEDICARE, OTHER, SELFPAY | PROVIDERS: PCP Family Medicine; Visit Provider Urology | DX: Z87.440 Personal history of urinary (tract) infections (principal); R35.81 Nocturnal polyuria | CPT/HCPCS: 51798; 99213 ==

== ENCOUNTER → 2022-09-06 10:10 | Outpatient (BNVA) | payer MEDICARE, SELFPAY | PROVIDERS: PCP Family Medicine; Visit Provider Family Medicine | DX: E89.0 Postprocedural hypothyroidism (principal) | CPT/HCPCS: 80053; 84443 ==

== ENCOUNTER → 2022-10-06 13:07 | Outpatient (BNVA) | payer MEDICARE, OTHER, SELFPAY | PROVIDERS: PCP Family Medicine; Visit Provider Surgery | DX: Z12.11 Encounter for screening for malignant neoplasm of colon (principal) | CPT/HCPCS: 99024; 99203 ==

== ENCOUNTER 2022-11-10 06:03 | Day surgery (SDC) | payer MEDICARE, OTHER, SELFPAY ==
[2022-11-05 12:25] VITALS: BMI 29.4
[2022-11-10 06:29] VITALS: BP 159/80; PULSE 94; RESP 16; TEMP 36.6; O2SAT 97
[2022-11-10] MEDS: sodium chloride 0.9% 1,000 ML 30 ML IV (06:32)
--- NOTE | 2022-11-10 06:50 | ANES.PREANE2 ---
Pre-Anesthetic Assessment Height/Weight: Height 1.7 m Weight 85.275 kg Temp Pulse Resp BP Pulse Ox O2 Del Method 97.9 F 94 16 159/80 97 Room Air 11/10/22 06:29 11/10/22 06:29 11/10/22 06:29 11/10/22 06:29 11/10/22 06:29 11/10/22 06:29 Preop Diagnosis: screening Operation Date: 11/10/22 08:00 Proposed Procedures p Colonoscopy 89925,Z12.11(Not Applicable) - Josué Dc DO Familial anesthetic complications: none Was Beta Soren taken within 24 hours: N/A Was Clonidine taken within 24 hours: N/A Last intake: Intake Last Liquid Date 11/09/22 Last Liquid Time 22:00 Last Solid Date 11/08/22 Last Solid Time 19:00 Social No alcohol and No tobacco Exam alert and oriented x 3 Airway Submandibular: within normal limits Cervical ROM: within normal limits Dentition: full History/ROS No significant history except as noted Pulmonary None reported CV/HEM Arrythmia (SVT- controlled on meds) and Hypertension None reported Hepatic None reported GI Gastroesophageal Reflux Disease Metabolic Thyroid Disease [facility] None reported Neuropsych None reported Anesthetic Plan ASA status: 3 Anesthesia: Anesthesia Evaluation, General and MAC Risk of > 500 ml blood loss (7ml/kg in children): No Medications/Allergies Home Medications Medication Instructions Recorded Confirmed Last Taken Type aspirin 81 mg tablet,delayed 81 mg PO .HS 03/27/20 11/10/22 11/06/22 History release (Adult Aspirin Regimen) calcium carbonate 500 mg calcium 500 mg PO DAILY 08/17/21 11/10/22 11/04/22 History (1,250 mg) tablet (Calcium 500) cholecalciferol (vitamin D3) 10 50 mcg PO DAILY 08/17/21 11/10/22 03/23/22 21:00 History mcg (400 unit) capsule mecobalamin (vitamin B12) 1,000 1,000 mcg PO DAILY 08/17/21 11/10/22 03/24/22 21:00 History mcg chewable tablet docusate sodium 100 mg capsule 100 mg PO BID PRN Constipation 10/22/21 11/10/22 Unknown History (Colace) methenamine hippurate 1 gram tablet 1 g PO BID #60 tabs 1111/10/22 11/08/22 Rx flecainide 100 mg tablet 100 mg PO BID #180 tabs 06/03/22 11/10/22 11/05/22 Rx verapamil 180 mg tablet,extended 180 mg PO DAILY #30 tabs 06/24/22 11/10/22 11/05/22 Rx release famotidine 20 mg tablet 20 mg PO DAILY #90 tabs 09/06/22 11/10/22 10/29/22 Rx ascorbic acid (vitamin C) 1,000 mg 1,000 mg PO BID 11/05/22 11/10/22 11/09/22 History tablet (Vitamin C) levothyroxine 100 mcg tablet 100 mcg PO DAILY 11/05/22 11/10/22 11/10/22 History lisinopril 10 mg tablet 10 mg PO DAILY 11/05/22 11/10/22 11/05/22 History Allergies Allergy/AdvReac Type Severity Reaction Status Date / Time No Known Allergies Allergy Verified 11/10/22 06:28 Current Medications Generic Name Dose Route Start Last Admin Trade Name Freq PRN Reason Stop Dose Admin Sodium Chloride 1,000 mls @ 30 mls/hr 11/10/22 06:15 11/10/22 06:32 Sodium Chloride 0.9% IV 11/11/22 06:14 30 mls/hr .Q24H SIDNEY Administration PFSH Anesthesia Medical History Atrial fibrillation Atypical chest pain Benign hypertension History of nonmelanoma skin cancer History of paroxysmal supraventricular tachycardia Hypothyroidism Mitral regurgitation Recurrent UTI Shingles Surgical History History of bilateral tubal ligation History of cholecystectomy History of thyroid surgery Hx of hysterectomy Total vag S/P bladder repair Status post vaginal hysterectomy Family History Grandmother Cancer Lung Cancer Diabetes maternal and maternal great grandmother Sister No problems noted. Mother , AT AGE 63 Cancer Breast Cancer and Liver Cancer Breast cancer mid 50's Father , AT AGE 71 No problems noted. Son Hypertension Diabetes Heart disease Family/Other Colon cancer paternal cousins x2 age onset unknown Denies family history of Ovarian cancer Clotting disorder Hyperlipidemia Anesthesia complication Bleeding disorder Uterine cancer Thyroid condition Stroke Social History Smoking and tobacco status: never smoked Alcohol intake: never Substance/Drug Use: never Marital status: Current occupational status: retired Data Anesthesia Cardiac Studies: Echocardiogram 09/10/21 Cardiac Event Monitor 11/25/21
--- NOTE | 2022-11-10 07:26 | PM.HP ---
Providers/Chief Complaint Primary Care Provider: Rosalind Atkins DO Chief Complaint: [id number]; Z12.11 History of Present Illness Catrina Ellis is a 67 year old female here for a screening colonoscopy Medications/Allergies Home Medications Medication Instructions Recorded Confirmed Last Taken Type aspirin 81 mg tablet,delayed 81 mg PO .HS 03/27/20 11/10/22 11/06/22 History release (Adult Aspirin Regimen) calcium carbonate 500 mg calcium 500 mg PO DAILY 08/17/21 11/10/22 11/04/22 History (1,250 mg) tablet (Calcium 500) cholecalciferol (vitamin D3) 10 50 mcg PO DAILY 08/17/21 11/10/22 03/23/22 21:00 History mcg (400 unit) capsule mecobalamin (vitamin B12) 1,000 1,000 mcg PO DAILY 08/17/21 11/10/22 03/24/22 21:00 History mcg chewable tablet docusate sodium 100 mg capsule 100 mg PO BID PRN Constipation 10/22/21 11/10/22 Unknown History (Colace) methenamine hippurate 1 gram tablet 1 g PO BID #60 tabs 04/13/22 11/10/22 11/08/22 Rx flecainide 100 mg tablet 100 mg PO BID #180 tabs 06/03/22 11/10/22 11/05/22 Rx verapamil 180 mg tablet,extended 180 mg PO DAILY #30 tabs 06/24/22 11/10/22 11/05/22 Rx release famotidine 20 mg tablet 20 mg PO DAILY #90 tabs 09/06/22 11/10/22 10/29/22 Rx ascorbic acid (vitamin C) 1,000 mg 1,000 mg PO BID 11/05/22 11/10/22 11/09/22 History tablet (Vitamin C) levothyroxine 100 mcg tablet 100 mcg PO DAILY 11/05/22 11/10/22 11/10/22 History lisinopril 10 mg tablet 10 mg PO DAILY 11/05/22 11/10/22 11/05/22 History Allergies Allergy/AdvReac Type Severity Reaction Status Date / Time No Known Allergies Allergy Verified 11/10/22 06:28 PFSH Acute PFSH: Medical History Atrial fibrillation Atypical chest pain Benign hypertension History of nonmelanoma skin cancer History of paroxysmal supraventricular tachycardia Hypothyroidism Mitral regurgitation Recurrent UTI Shingles Surgical History History of bilateral tubal ligation History of cholecystectomy History of thyroid surgery Hx of hysterectomy Total vag S/P bladder repair Status post vaginal hysterectomy Family History Grandmother Cancer Lung Cancer Diabetes maternal and maternal great grandmother Sister No problems noted. Mother , AT AGE 63 Cancer Breast Cancer and Liver Cancer Breast cancer mid 50's Father , AT AGE 71 No problems noted. Son Hypertension Diabetes Heart disease Family/Other Colon cancer paternal cousins x2 age onset unknown Denies family history of Ovarian cancer Clotting disorder Hyperlipidemia Anesthesia complication Bleeding disorder Uterine cancer Thyroid condition Stroke Social History Smoking and tobacco status: never smoked Alcohol intake: never Substance/Drug Use: never Marital status: Current occupational status: retired Vitals/I&O/Wt Last Vital Signs Temp 97.9 F 11/10/22 06:29 Pulse 94 11/10/22 06:29 Resp 16 11/10/22 06:29 BP 159/80 11/10/22 06:29 Pulse Ox 97 11/10/22 06:29 O2 Del Method Room Air 11/10/22 06:29 A&P Assessment and plan (1) Colon cancer screening: Plan Screening colonoscopy Attestations Medical Necessity Statement*: Home Coding Level of Care Code Acute Code for Chg Fwd Diagnoses Colon cancer screening Z12.11
[2022-11-10 08:10] VITALS: BP 104/56; PULSE 65; RESP 12; TEMP 36.6; O2SAT 100
[2022-11-10 08:25] VITALS: BP 125/73; PULSE 74; RESP 16; O2SAT 100
--- NOTE | 2022-11-10 12:45 | ANE.PACU2 ---
Inpatient post-anesthesia follow up: Airway intact: Yes Vital signs: Temperature 97.9 F Pulse Rate 74 Respiratory Rate 16 Blood Pressure 125/73 Pulse Oximetry 100 Oxygen Delivery Me thod Room Air Oxygen Flow Rate Fraction of Inspir ed Oxygen Hydration adequate: Yes Nausea and vomiting: No Pain level: 1 Mental status: Baseline
== END 2022-11-10 08:48 | disposition home or self-care (01) ==
PROVIDERS: PCP Family Medicine; Visit Provider Surgery
PROC: 0DJD8ZZ Inspection of Lower Intestinal Tract, Via Natural or Artificial Opening Endoscopic (ICD-10-PCS; CPT 45378; principal; 2022-11-10 08:00)
DX: Z12.11 Encounter for screening for malignant neoplasm of colon (principal); I10 Essential (primary) hypertension; K21.9 Gastro-esophageal reflux disease without esophagitis; E03.9 Hypothyroidism, unspecified; Z79.82 Long term (current) use of aspirin; I48.91 Unspecified atrial fibrillation; K64.8 Other hemorrhoids
CPT/HCPCS: G0121; J2704; J7030

== ENCOUNTER → 2022-11-16 10:05 | Outpatient (BNVA) | payer MEDICARE, OTHER, SELFPAY | PROVIDERS: PCP Family Medicine; Visit Provider Urology | DX: N39.0 Urinary tract infection, site not specified (principal); R35.81 Nocturnal polyuria | CPT/HCPCS: 81003; 99213 ==

== ENCOUNTER → 2022-12-02 15:37 | Outpatient (BNVA) | payer MEDICARE, OTHER, SELFPAY | PROVIDERS: PCP Family Medicine; Visit Provider Specialist | DX: I48.20 Chronic atrial fibrillation, unspecified (principal); I10 Essential (primary) hypertension; I34.0 Nonrheumatic mitral (valve) insufficiency | CPT/HCPCS: 99214 ==

== ENCOUNTER → 2023-01-03 08:41 | Outpatient (BNVA) | payer MEDICARE, OTHER, SELFPAY | PROVIDERS: PCP Family Medicine; Visit Provider Family Medicine | DX: I10 Essential (primary) hypertension (principal) | CPT/HCPCS: 80053; 80061 ==

== ENCOUNTER 2023-01-19 12:56 | Outpatient (CLI) | payer MEDICARE, OTHER, SELFPAY ==
--- NOTE | 2023-01-19 13:30 | XR_ITS ---
WS: [id number] SCREENING DEXA SCAN [facility] CLINICAL INFORMATION: postmenopausal COMPARISON: 2020 FINDINGS: The L1-L4 bone mineral density measures 1.238 g/cm2. This corresponds to a T score score of 0.5 and Z score of 1.4. Left femoral neck bone mineral density measures 0.832 g/cm2. This corresponds to a T score of -1.4 an d Z score of -0.5. Right femoral neck bone mineral density measures 0.850 g/cm2. This corresponds to a T score -1.2of an d Z score of -0.3. Mean femoral neck bone mineral density measures 0.841 g/cm2. This corresponds to a T score of -1.3 an d Z score of -0.4. IMPRESSION: Normal bone mineralization lumbar spine. Osteopenia femoral necks. Patient's FRAX calculated 10 year probability for major osteoporotic fracture is 15.2% and osteoporot ic hip fracture is 2.1%. Bone mineral density increased 7.3% in the lumbar spine Bone mineral density in the femoral necks decrease -0.4%
--- NOTE | 2023-01-19 13:32 | MM_ITS ---
WS: [id number] BILATERAL 3D TOMOSYNTHESIS DIGITAL SCREENING MAMMOGRAPHY WITH CAD CLINICAL INFORMATION: screening mammogram HISTORY: Screening mammogram. No current complaints. COMPARISON: 01/21/2022 TECHNIQUE: Bilateral CC and MLO views. FINDINGS: Scattered fibroglandular densities bilaterally. No suspicious focal mass, asymmetry, calcifications, or architectural distortion. No evidence of malignancy. Vascular calcification. IMPRESSION: MM/[place] [id number] BI-RADS: 2-Benign FOLLOW UP: 1 Year Follow-up Recommend return to annual screening mammography.
== END 2023-01-19 12:57 | disposition home or self-care (01) ==
LOC: RAD 13:03 → MOBLMAM 13:31
PROVIDERS: PCP Family Medicine; Visit Provider Family Medicine
DX: Z12.31 Encounter for screening mammogram for malignant neoplasm of breast (principal); Z78.0 Asymptomatic menopausal state; N39.0 Urinary tract infection, site not specified
CPT/HCPCS: 77063; 77067; 77080; 81000; 87086

== ENCOUNTER → 2023-02-25 09:14 | Outpatient (BNVA) | payer MEDICARE, OTHER, SELFPAY | PROVIDERS: PCP Family Medicine; Visit Provider Family Medicine | DX: E89.0 Postprocedural hypothyroidism (principal); R30.0 Dysuria; R35.81 Nocturnal polyuria | CPT/HCPCS: 81000; 84443; 85025; 87077; 87086; 87184 ==

== ENCOUNTER → 2023-03-21 08:58 | Outpatient (BNVA) | payer MEDICARE, OTHER, SELFPAY | PROVIDERS: PCP Family Medicine; Visit Provider Nurse Practitioner Family | DX: L57.0 Actinic keratosis (principal); Z85.828 Personal history of other malignant neoplasm of skin; L82.1 Other seborrheic keratosis; L81.5 Leukoderma, not elsewhere classified; L57.8 Other skin changes due to chronic exposure to nonionizing radiation | CPT/HCPCS: 17000; 99213 ==

== ENCOUNTER → 2023-07-07 13:46 | Outpatient (BNVA) | payer MEDICARE, OTHER, SELFPAY | PROVIDERS: PCP Family Medicine; Visit Provider Nurse Practitioner Family | DX: I48.20 Chronic atrial fibrillation, unspecified (principal); I10 Essential (primary) hypertension | CPT/HCPCS: 99214 ==

== ENCOUNTER → 2023-08-18 09:14 | Outpatient (BNVA) | payer MEDICARE, OTHER, SELFPAY | PROVIDERS: PCP Family Medicine; Visit Provider Family Medicine | DX: E89.0 Postprocedural hypothyroidism (principal) | CPT/HCPCS: 84443 ==

== ENCOUNTER 2023-10-21 11:25 | Outpatient (CLI) | payer MEDICARE, OTHER, SELFPAY ==
--- NOTE | 2023-10-21 11:29 | XR_ITS ---
WS: [email or web address] Right ankle, 3 views, 10/21/2023 Clinical Data: acute right ankle pain Comparison: Right ankle, 09/02/2020 Findings: No fractures or dislocations are seen. The ankle mortise is normal. The talus and calcaneus are unrem arkable. No soft tissue swelling over the medial or lateral malleolus is seen. There is an Achilles spur. XR/XR ankle RT min 3V* [id number] Impression: Negative right ankle.
== END 2023-10-21 11:26 | disposition home or self-care (01) ==
LOC: RAD 11:28
PROVIDERS: PCP Family Medicine; Visit Provider Family Medicine
DX: M25.571 Pain in right ankle and joints of right foot (principal)
CPT/HCPCS: 73610

== ENCOUNTER → 2024-01-04 15:45 | Outpatient (BNVA) | payer MEDICARE, OTHER, SELFPAY | PROVIDERS: PCP Family Medicine Adult Medicine; Visit Provider Internal Medicine Cardiovascular Disease | DX: I47.10 Supraventricular tachycardia, unspecified (principal); I65.29 Occlusion and stenosis of unspecified carotid artery; I10 Essential (primary) hypertension; E89.0 Postprocedural hypothyroidism | CPT/HCPCS: 99214 ==

== ENCOUNTER → 2024-01-27 08:16 | Outpatient (BNVA) | payer MEDICARE, OTHER, SELFPAY | PROVIDERS: PCP Family Medicine; Visit Provider Family Medicine Adult Medicine | DX: I10 Essential (primary) hypertension (principal); E03.9 Hypothyroidism, unspecified; E89.0 Postprocedural hypothyroidism; E66.9 Obesity, unspecified; I47.10 Supraventricular tachycardia, unspecified; I48.20 Chronic atrial fibrillation, unspecified | CPT/HCPCS: 80053; 80061; 83036; 84443; 85025 ==

== ENCOUNTER 2024-02-10 10:12 | Outpatient (CLI) | payer MEDICARE, OTHER, SELFPAY ==
--- NOTE | 2024-02-10 10:14 | MM_ITS ---
WS: [id number] SCREENING DIGITAL BREAST TOMOSYNTHESIS MAMMOGRAM WITH CAD HISTORY: SCREENING COMPARISON: 01/19/2023, 01/21/2022, 09/18/2020 Bilateral CC and MLO with tomosynthesis and synthetic mammography submitted. Computer aided detection analyzed. Breast composition: There are scattered areas of fibroglandular density. Lobulated 4 mm nodule medial inferior LEFT breast near 8:00. This nodule has been present on prior studies but better visualized today and appears slightly larger. This may be a benign lymph node but should be further evaluated at this time. Benign bilateral vascular calcifications. MM/[place] [id number] IMPRESSION: BI-RADS: 0-Incomplete: Need additional imaging evaluation FOLLOW UP: Need Additional Imaging LEFT breast: Spot compression views (CC and MLO). True ML. Ultrasound to follow if abnormality persists.
== END 2024-02-10 10:13 | disposition home or self-care (01) ==
LOC: RAD 10:12
PROVIDERS: PCP Family Medicine; Visit Provider Family Medicine Adult Medicine
DX: Z12.31 Encounter for screening mammogram for malignant neoplasm of breast (principal); R92.323 Mammographic fibroglandular density, bilateral breasts; R92.1 Mammographic calcification found on diagnostic imaging of breast; N63.24 Unspecified lump in the left breast, lower inner quadrant
CPT/HCPCS: 77063; 77067

== ENCOUNTER 2024-03-07 14:07 | Outpatient (CLI) | payer MEDICARE, OTHER, SELFPAY ==
--- NOTE | 2024-03-07 14:45 | USCV_ITS ---
Catrina Ellis Age: 68 Gender: F : 1955 Exam Date: 03/07/2024 14:13 Ordering Phys: Lucía De Luna MD ([email or web address]) Technologist: PHILOMENA Exam Location: [facility] [place] Indication: stenosis Risk Factors: Previous Vascular Surgery: Right Brachial BP: / Left Brachial BP: / Right Left Velocity (cm/s) Spectral Plaque Velocity (cm/s) Spectral Plaque Syst/Diast Broadening Syst/Diast Broadening 76.30/ 20.60 Prox CCA 102.10/ 25.90 91.90/ 23.20 Mid CCA 85.60 / 18.30 63.40/ 19.30 Distal CCA 87.70 / 19.40 54.90/ 18.20 Prox ICA 55.00 / 14.70 62.60/ 23.20 Mid ICA 49.10 / 15.70 69.20/ 26.00 Distal ICA 40.30 / 13.70 71.10 ECA 109.70 1.10 ICA/CCA 0.60 Antegrade Vertebral Antegrade 40.30/ 8.10 cm/s 55.90/ 17.80 cm/s Tri Subclavian Tri 72.10 87.60 FINDINGS Mild diffuse plaques at the bifurcations and internal carotid artery. Normal Doppler flow velocities and ratios. Antegrade flow in the vertebral arteries bilaterally Normal Doppler flow velocities in the external carotid and the subclavian arteries bilaterally CONCLUSIONS Mild diffuse plaque at the bifurcations and internal carotid arteries bilaterally suggesting less than 50% stenosis No significant stenosis on in the external carotid, subclavian and vertebral arteries bilaterally, based on the above findings Compared to the study from 06/22/2022, there may not be a significant change Dr Lucía De Luna MD [facility] (Electronically Signed) Final Date: 16 March 2024 10:58 S
== END 2024-03-07 14:08 | disposition home or self-care (01) ==
LOC: RAD 14:08
PROVIDERS: PCP Family Medicine; Visit Provider Internal Medicine Cardiovascular Disease
DX: I65.29 Occlusion and stenosis of unspecified carotid artery (principal)
CPT/HCPCS: 93880

== ENCOUNTER 2024-03-20 08:28 | Outpatient (CLI) | payer MEDICARE, OTHER, SELFPAY ==
--- NOTE | 2024-03-20 09:00 | MM_ITS ---
WS: [id number] ADDITIONAL VIEWS LEFT MAMMOGRAM with tomosynthesis. LEFT BREAST ULTRASOUND HISTORY: Indeterminate mass. COMPARISON: 02/10/2024, 01/19/2023, 01/21/2022 LEFT MAMMOGRAM: Spot compression views and true ML with tomosynthesis and sympathetic mammography. Breast composition: There are scattered areas of fibroglandular density. Lobulated mass measuring 4 x 4 x 6 mm just medial and inferior to the nipple line. Mass is well-circu mscribed and in middle depth. LEFT BREAST ULTRASOUND 2-D and color Doppler imaging submitted. 2 lymph nodes are identified within the LEFT breast. At 6:00, 2 cm from the nipple is a lymph node me asuring 0.4 x 0.3 x 0.5 cm. There is an additional lymph node at 8:00, 4 cm from the nipple measuring 0.4 x 0.2 x 0.6 cm. This lymph node corresponds to the mammographic abnormality. No suspicious mass or shadowing. MM/MM diag LT tomosynthesis [id number] IMPRESSION: BI-RADS: 2 - Benign. FOLLOW UP: 1 Year Follow-up
--- NOTE | 2024-03-20 10:00 | US_ITS ---
WS: [email or web address] ADDITIONAL VIEWS LEFT MAMMOGRAM with tomosynthesis. LEFT BREAST ULTRASOUND HISTORY: Indeterminate mass. COMPARISON: 02/10/2024, 01/19/2023, 01/21/2022 LEFT MAMMOGRAM: Spot compression views and true ML with tomosynthesis and sympathetic mammography. Breast composition: There are scattered areas of fibroglandular density. Lobulated mass measuring 4 x 4 x 6 mm just medial and inferior to the nipple line. Mass is well-circu mscribed and in middle depth. LEFT BREAST ULTRASOUND 2-D and color Doppler imaging submitted. 2 lymph nodes are identified within the LEFT breast. At 6:00, 2 cm from the nipple is a lymph node me asuring 0.4 x 0.3 x 0.5 cm. There is an additional lymph node at 8:00, 4 cm from the nipple measuring 0.4 x 0.2 x 0.6 cm. This lymph node corresponds to the mammographic abnormality. No suspicious mass or shadowing. US/US breast LT limited* [id number] IMPRESSION: BI-RADS: 2 - Benign. FOLLOW UP: 1 Year Follow-up
== END 2024-03-20 08:29 | disposition home or self-care (01) ==
LOC: RAD 08:29
PROVIDERS: PCP Family Medicine; Visit Provider Family Medicine
DX: N63.24 Unspecified lump in the left breast, lower inner quadrant (principal)
CPT/HCPCS: 76642; 77061; G0279

== ENCOUNTER → 2024-03-21 09:03 | Outpatient (BNVA) | payer MEDICARE, OTHER, SELFPAY | PROVIDERS: PCP Family Medicine; Visit Provider Nurse Practitioner Family | DX: L82.1 Other seborrheic keratosis (principal); L57.8 Other skin changes due to chronic exposure to nonionizing radiation; D22.5 Melanocytic nevi of trunk; L57.0 Actinic keratosis; Q82.5 Congenital non-neoplastic nevus; Z85.828 Personal history of other malignant neoplasm of skin; D22.4 Melanocytic nevi of scalp and neck | CPT/HCPCS: 17000; 99213 ==

== ENCOUNTER → 2024-07-03 09:35 | Outpatient (BNVA) | payer MEDICARE, OTHER, SELFPAY | PROVIDERS: PCP Family Medicine; Visit Provider Internal Medicine Cardiovascular Disease | DX: I47.10 Supraventricular tachycardia, unspecified (principal); I48.20 Chronic atrial fibrillation, unspecified; I65.29 Occlusion and stenosis of unspecified carotid artery; E89.0 Postprocedural hypothyroidism | CPT/HCPCS: 99214 ==

== ENCOUNTER → 2024-07-23 10:17 | Outpatient (BNVA) | payer MEDICARE, OTHER, SELFPAY | PROVIDERS: PCP Family Medicine; Visit Provider Family Medicine | DX: I10 Essential (primary) hypertension (principal); I34.0 Nonrheumatic mitral (valve) insufficiency; I48.20 Chronic atrial fibrillation, unspecified; R73.03 Prediabetes; E89.0 Postprocedural hypothyroidism; N18.2 Chronic kidney disease, stage 2 (mild); N39.0 Urinary tract infection, site not specified | CPT/HCPCS: 80053; 83036; 84439; 84443; 85025 ==

== ENCOUNTER → 2024-08-10 09:04 | Outpatient (BNVA) | payer MEDICARE, OTHER, SELFPAY | PROVIDERS: PCP Family Medicine; Visit Provider Family Medicine Adult Medicine | DX: R39.9 Unspecified symptoms and signs involving the genitourinary system (principal) | CPT/HCPCS: 81000 ==

== ENCOUNTER 2024-08-13 08:23 | Outpatient (CLI) | payer MEDICARE, OTHER, SELFPAY ==
--- NOTE | 2024-08-13 08:30 | USCV_ITS ---
Catrina Ellis Age: 69 Gender: F : 1955 Exam Date: 08/13/2024 08:52 Ordering Phys: Ginny Soto NP Technologist: CT Exam Location: [facility] [place] Indication: BP: 92 / 64 HR: 62 Rhythm: Sinus Technical Quality: Adequate MEASUREMENTS (Male / Female) Normal Values 2D ECHO LVOT Diameter 2.1 cm LV Ejection Fraction MOD 4C 63.0 % LV Ejection Fraction MOD 2C 65.5 % LV Ejection Fraction 2C AL 63.4 % LA Diameter 2.8 cm RA Systolic Volume 4C AL 45.3 ml RA Systolic Volume 4C MOD 42.2 ml LA Sys Volume AL 37.3 cm cubed LA Sys Volume Index AL 19.1 cm cubed/m squared Aorta at Sinotubular Diameter 2.3 cm M-MODE LA Ao Ratio MM 1.2 AV Cusp Separation MM 2.0 cm DOPPLER AV Peak Velocity 111.0 cm/s LVOT Peak Velocity 79.0 cm/s AV Area Cont Eq vti 2.8 cm squared AV Area Cont Eq pk 2.5 cm squared MV Peak Velocity 112.0 cm/s MV Area PHT 4.8 cm squared Mitral E to A Ratio 1.3 TV Peak Velocity 234.5 cm/s TR Peak Velocity 243.0 cm/s TR Peak Gradient 23.6 mmHg TV Peak E Velocity 74.0 cm/s PV Peak Velocity 96.5 cm/s FINDINGS Left Ventricle Left ventricle is normal size. LV systolic function is normal with EF of 55-60%. No regional wall motion abnormalities. Right Ventricle Normal in size and function Right Atrium Normal in size Left Atrium Normal in size Mitral Valve Structurally normal mitral valve. Mild mitral regurgitation. Aortic Valve Structurally normal aortic valve. No significant stenosis. Tricuspid Valve Mild tricuspid regurgitation. Pulmonary artery systolic pressure is normal. Pulmonic Valve Not well visualized Pericardium Normal Aorta Normal in size IVC Not well visualized CONCLUSIONS LV systolic function is normal with EF of 55-60%. Mild mitral regurgitation Mild tricuspid regurgitation Compared to prior echocardiogram from 2021, no significant changes are seen Finn Buckner MD (Electronically Signed) Final Date: 19 August 2024 10:04 S
== END 2024-08-13 08:24 | disposition home or self-care (01) ==
PROVIDERS: PCP Family Medicine; Visit Provider Nurse Practitioner Family
DX: I34.0 Nonrheumatic mitral (valve) insufficiency (principal); I07.1 Rheumatic tricuspid insufficiency
CPT/HCPCS: 93306; 99214

== ENCOUNTER → 2024-09-11 14:23 | Outpatient (BNVA) | payer MEDICARE, OTHER, SELFPAY | PROVIDERS: PCP Family Medicine | DX: R39.9 Unspecified symptoms and signs involving the genitourinary system (principal); I48.20 Chronic atrial fibrillation, unspecified; E89.0 Postprocedural hypothyroidism | CPT/HCPCS: 81000; 84439; 84443 ==

== ENCOUNTER → 2025-01-15 08:51 | Outpatient (BNVA) | payer MEDICARE, OTHER, SELFPAY | PROVIDERS: PCP Family Medicine; Visit Provider Family Medicine | DX: I10 Essential (primary) hypertension (principal); R73.03 Prediabetes; E89.0 Postprocedural hypothyroidism | CPT/HCPCS: 80053; 80061; 82607; 83036; 84439; 84443; 99214 ==

== ENCOUNTER 2025-03-04 08:53 | Outpatient (CLI) | payer MEDICARE, OTHER, SELFPAY ==
--- NOTE | 2025-03-04 08:57 | XR_ITS ---
WS: [email or web address] Exam: XR wrist LT min 3V* [id number] Date/Time of Exam: 03/04/2025 9:00 AM Reason For Exam: left wrist pain DLP: No acute fracture. The joints are relatively well-maintained. No soft tissue foreign bodies are seen. XR/XR wrist LT min 3V* [id number] IMPRESSION: 1. No fracture or other significant finding.
== END 2025-03-04 08:54 | disposition home or self-care (01) ==
LOC: RAD 08:55
PROVIDERS: PCP Family Medicine; Visit Provider Family Medicine Adult Medicine
DX: E89.0 Postprocedural hypothyroidism (principal); S69.92XA Unspecified injury of left wrist, hand and finger(s), initial encounter; X58.XXXA Exposure to other specified factors, initial encounter
CPT/HCPCS: 73110; 84439; 84443

== ENCOUNTER → 2025-03-14 13:30 | Outpatient (BNVA) | payer MEDICARE, OTHER, SELFPAY | PROVIDERS: PCP Family Medicine; Visit Provider Nurse Practitioner Family | DX: R23.3 Spontaneous ecchymoses (principal); L82.1 Other seborrheic keratosis; L57.8 Other skin changes due to chronic exposure to nonionizing radiation; D22.5 Melanocytic nevi of trunk; Q82.5 Congenital non-neoplastic nevus; D22.4 Melanocytic nevi of scalp and neck; Z08 Encounter for follow-up examination after completed treatment for malignant neoplasm; Z85.828 Personal history of other malignant neoplasm of skin; L57.0 Actinic keratosis | CPT/HCPCS: 17000; 99213 ==

== ENCOUNTER → 2025-03-21 07:31 | Outpatient (BNVA) | payer MEDICARE, OTHER, SELFPAY | PROVIDERS: PCP Family Medicine; Visit Provider Family Medicine | DX: R39.9 Unspecified symptoms and signs involving the genitourinary system (principal) | CPT/HCPCS: 81000; 87077; 87086; 87184 ==

== ENCOUNTER 2025-04-09 08:57 | Outpatient (CLI) | payer MEDICARE, OTHER, SELFPAY ==
--- NOTE | 2025-04-09 09:00 | MM_ITS ---
WS: [email or web address] BILATERAL 3D TOMOSYNTHESIS DIGITAL SCREENING MAMMOGRAPHY WITH CAD CLINICAL INFORMATION: SCREENING HISTORY: Screening mammogram. No current complaints. COMPARISON: 2023 TECHNIQUE: Bilateral CC and MLO views. FINDINGS: Scattered fibroglandular densities bilaterally. No suspicious focal mass, asymmetry, calcifications, or architectural distortion. No evidence of malignancy. Vascular calcifications. MM/MM scr tomosynthesis [id number] IMPRESSION: DENSITY: There are scattered areas of fibroglandular density. BI-RADS: 2 - Benign. FOLLOW UP: 1 Year Follow-up Recommend return to annual screening mammography.
== END 2025-04-09 08:58 | disposition home or self-care (01) ==
LOC: RAD 08:58
PROVIDERS: PCP Family Medicine; Visit Provider Family Medicine
DX: Z12.31 Encounter for screening mammogram for malignant neoplasm of breast (principal); R92.323 Mammographic fibroglandular density, bilateral breasts; R92.1 Mammographic calcification found on diagnostic imaging of breast
CPT/HCPCS: 77063; 77067

== ENCOUNTER → 2025-05-17 09:02 | Outpatient (BNVA) | payer MEDICARE, OTHER, SELFPAY | PROVIDERS: PCP Family Medicine; Visit Provider Family Medicine | DX: E89.0 Postprocedural hypothyroidism (principal) | CPT/HCPCS: 83735; 84439; 84443 ==